=== PATIENT | male | born 1960 | race Caucasian/White ===

== ENCOUNTER → 2017-06-20 | Outpatient (CLI) | payer MEDICARE ==
[~2017-06-20] MED LIST: ALPR1TAB2 PO; ASCO10006 PO; ASPI-983 PO; BUPR100T6 PO; BUPR100T7 PO; CHOL500044 PO; CYAN10006 PO; EZET10TA5 PO; FENO134C PO; FENO135C PO; GLUC1CAP37 PO; METO-333 PO; METO-387 PO; MULT-324 PO; OLME40TA12 PO; OMEP20CA12 PO; OMG1KC PO; ROSU40TA PO; SUCR1TAB36 PO; TRAM50TA2 PO; VITA400C58 PO
== END ==
LOC: CARD 12:36
PROVIDERS: ATTEND Physician Assistant
DX: I25.10 Atherosclerotic heart disease of native coronary artery without angina pectoris (principal); R07.89 Other chest pain; I10 Essential (primary) hypertension; E78.2 Mixed hyperlipidemia
CPT/HCPCS: 93306

== ENCOUNTER → 2017-07-31 | Outpatient (CLI) | payer MEDICARE ==
[~2017-07-31] MED LIST changes: +CATHETER FLUSH 10 ML SYR IV PRN; +REGADENOSON 0.4 MG/5 ML SYR (LEXISCAN) IV ONE
[2017-07-31 13:14] VITALS: BP 154/102
[2017-07-31 13:23] VITALS: BP 147/79
--- NOTE | 2017-08-01 10:01 | STRESS TEST ---
DATE OF SERVICE: 07/31/2017 LEXISCAN MYOVIEW STRESS TEST REPORT REFERRING PHYSICIAN: Dr. Jian Arora. Baseline heart rate is 63, baseline blood pressure 154/100. Baseline EKG is sinus rhythm with no ischemic changes. In summary, the patient was injected with 10.27 mCi of technetium-99 Myoview and the resting images were obtained. Then, the patient received 0.4 mg of Lexiscan followed by 30.4 mCi of technetium-99 Myoview. Throughout the test, there were no EKG changes. The resting and stressed images were reviewed and compared to the short axis, horizontal long axis, and vertical long axis views. Review of the images showed diaphragmatic attenuation with good radiotracer uptake. There is mild decreased uptake at the basal to mid anterior wall with subtle reversibility. SSS is 4, SDS 3, TID value 1.08. On the gated images, the left ventricle appeared to be normal size with normal contractility. Calculated ejection fraction is 62%. CONCLUSION: 1. The patient developed chest pain with Lexiscan injection. 2. The patient developed chest pain later during recovery. 3. No EKG changes. 4. No significant ischemia or infarction on SPECT images. There is mild decreased uptake at the basal to mid anterior wall and basal to mid inferior wall with subtle reversibility. No significant ischemia was noted. 5. Normal left ventricular size with normal contractility, calculated ejection fraction is 67%. Job ID: [id number] DocumentID: [id number] Dictated Date: 07/31/2017 15:33:52 Resident Care Aid Date: 07/31/2017 20:01:12 Dictated By: SHANIKA HOLMAN MD
== END ==
LOC: CARD 11:52
PROVIDERS: ATTEND Physician Assistant
DX: I25.10 Atherosclerotic heart disease of native coronary artery without angina pectoris; R07.89 Other chest pain; E78.2 Mixed hyperlipidemia; I10 Essential (primary) hypertension
CPT/HCPCS: 78452; 93017

== ENCOUNTER → 2018-02-12 | Outpatient (CLI) | payer MEDICARE ==
[~2018-02-12] MED LIST changes: +ATOR20TA66 PO; -CATHETER FLUSH 10 ML SYR IV PRN; +CHOL10007 PO; +KRIL500C PO; +LOSA25TA21 PO; -REGADENOSON 0.4 MG/5 ML SYR (LEXISCAN) IV ONE
== END ==
LOC: PREOP 05:37
PROVIDERS: ATTEND Internal Medicine
DX: Z01.818 Encounter for other preprocedural examination (principal); Z12.11 Encounter for screening for malignant neoplasm of colon; K21.9 Gastro-esophageal reflux disease without esophagitis

== ENCOUNTER 2018-02-14 07:57 | Day surgery (SDC) | payer MEDICARE ==
--- NOTE | 2018-02-11 15:07 | HISTORY AND PHYSICAL ---
DATE OF SERVICE: PANENDOSCOPY HISTORY AND PHYSICAL DATE OF ADMISSION: 02/14/2018. REFERRING PHYSICIAN: . HISTORY OF PRESENT ILLNESS: The patient is a 57-year-old white male referred for screening colonoscopy and diagnostic EGD. He has a history of reflux and despite PPI and Carafate, the latter of which he has recently stopped, continues to have intermittent dysphagia to solids. He denies weight loss, melena or bright red blood per rectum. It is a little over 6 years since his last colonoscopy at which time, he had polyps removed. He is deemed to be of higher than average risk due to his personal past history of polyps and he also has several uncles who have been diagnosed with colon cancer in their 60s. He has been generally feeling well otherwise. PAST MEDICAL HISTORY: Significant for coronary artery disease. He has had multiple stents placed in the past; it has been over 5 years since his last stent. A review of our medical record indicates cardiac catheterization performed in 02/2016. His systolic function was preserved with an ejection fraction of 60%. Multiple stents were noted. He had a 40% to 50% step off after his most distal LAD stent and a 40% to 50% in-stent stenosis of the circumflex stent, but no evidence for flow limiting disease was noted. He has had no problems with angina or increase in dyspnea on exertion and denies orthopnea, PND or pedal edema. Past medical history is significant for hyperlipidemia and hypertension. MEDICATIONS ON ADMISSION: Include omeprazole 20 mg daily, 81 mg aspirin daily, Wellbutrin-SR 100 mg tab daily, metoprolol tartrate 25 mg daily, Fenofibrate 134 mg daily, he has generalized anxiety and takes Xanax 1 mg t.i.d. some multiple vitamins, losartan 50 mg daily, atorvastatin 80 mg daily, Claritin 10 mg daily and tramadol 50 mg q.6h p.r.n. PAST SURGICAL HISTORY: Noncontributory. No history of a foreign body or joint replacement surgery. FAMILY HISTORY: Father at age of 72 of glioblastoma. Mother is still living . One brother was diagnosed with prostate cancer at the age of 60 and two cousins with colon cancer and one also with history of lung cancer. SOCIAL HISTORY: He is retired. Distant past smoking history with no significant alcohol consumption history. PHYSICAL EXAMINATION: GENERAL: Reveals a well-appearing white male in no acute distress. VITAL SIGNS: Blood pressure 114/80 with a heart rate of 66 and regular. HEENT: Unremarkable and normocephalic. No evidence for trauma. Sclerae nonicteric. NECK: Revealed no JVD, adenopathy or bruits. Oral cavity is clear with a Mallampati class 2 oropharyngeal configuration. No erythema is noted. CHEST: Clear to auscultation. CARDIOVASCULAR: Reveals a regular rate and rhythm without murmur, S3 or S4. ABDOMEN: Soft, supple without mass, organomegaly or tenderness. Bowel sounds are positive. No bruits are noted. EXTREMITIES: Reveal no cyanosis, clubbing or edema. ASSESSMENT: The patient is set up for a screening colonoscopy and diagnostic EGD on 02/14/2018. He is to hold aspirin and continue his other medications. Prep instructions with Colyte were given and questions were answered. With evaluation of the patient in addition to review of his electronic medical record, 45 minutes of my direct care time was spent with another 15 minutes of staff time. I thank you for the referral of this pleasant gentleman. Job ID: [id number] DocumentID: [id number] Dictated Date: 02/11/2018 14:38:03 Senior Functional Analyst Date: 02/11/2018 15:06:54 Dictated By: CARIDAD HOLLIS MD [facility]
[~2018-02-14] VITALS: Ht 167.6 cm; Wt 90.7 kg
[~2018-02-14 07:57] MED LIST changes: -ATOR20TA66 PO; -CHOL10007 PO; -KRIL500C PO; -LOSA25TA21 PO
--- OUTSIDE RECORDS SUMMARY | 2018-02-14 08:01 | XMS REPORT | Continuity of Care Document ---
Author Author [facility] Organization [facility] Address Unknown Phone Unavailable Allergies Active Description Code Type Severity Reaction Onset Reported/Identified Relationship to Patient Clinical Status Yes Penicillins [id number] Drug Allergy Unknown N/A 02/29/2016 Medications There is no data. Problems Date Dx Coded Attending Type Code Diagnosis Diagnosed By 11/10/2015 SHANIKA HOLMAN MD Ot E78.2 11/10/2015 SHANIKA HOLMAN MD Ot I10 11/10/2015 SHANIKA HOLMAN MD Ot I25.10 11/10/2015 SHANIKA HOLMAN MD Ot R00.2 11/10/2015 SHANIKA HOLMAN MD Ot R07.89 11/10/2015 SHANIKA HOLMAN MD Ot Z87.891 12/14/2015 SHANIKA HOLMAN MD Ot E78.2 12/14/2015 SHANIKA HOLMAN MD Ot I10 12/14/2015 SHANIKA HOLMAN MD Ot I25.10 12/14/2015 SHANIKA HOLMAN MD Ot R00.2 12/14/2015 SHANIKA HOLMAN MD Ot R07.89 12/14/2015 SHANIKA HOLMAN MD Ot Z87.891 12/15/2015 SHANIKA HOLMAN MD Ot E78.2 12/15/2015 SHANIKA HOLMAN MD Ot I10 12/15/2015 SHANIKA HOLMAN MD Ot I25.10 12/15/2015 SHANIKA HOLMAN MD Ot R00.2 12/15/2015 SHANIKA HOLMAN MD Ot R07.89 12/15/2015 SHANIKA HOLMAN MD Ot Z87.891 12/16/2015 SHANIKA HOLMAN MD Ot I10 12/16/2015 SHANIKA HOLMAN MD Ot I25.10 12/16/2015 SHANIKA HOLMAN MD Ot R07.9 01/06/2016 SHANIKA HOLMAN MD Ot I10 01/06/2016 SHANIKA HOLMAN MD Ot I25.10 01/06/2016 SHANIKA HOLMAN MD Ot R07.9 01/25/2016 SHANIKA HOLMAN MD Ot I10 01/25/2016 SHANIKA HOLMAN MD Ot I25.10 01/25/2016 SHANIKA HOLMAN MD Ot R07.9 02/16/2016 TRISH STANTON MD Ot G47.33 OBSTRUCTIVE SLEEP APNEA (ADULT) (PEDIATR 02/23/2016 TRISH STANTON MD Ot G47.33 02/29/2016 SHANIKA HOLMAN MD Ot E78.5 HYPERLIPIDEMIA, UNSPECIFIED 02/29/2016 SHANIKA HOLMAN MD Ot F41.9 ANXIETY DISORDER, UNSPECIFIED 02/29/2016 SHANIKA HOLMAN MD Ot I10 ESSENTIAL (PRIMARY) HYPERTENSION 02/29/2016 SHANIKA HOLMAN MD Ot I25.10 ATHSCL HEART DISEASE OF [place] CORONARY 02/29/2016 SHANIKA HOLMAN MD Ot I25.82 CHRONIC TOTAL OCCLUSION OF CORONARY AC 02/29/2016 SHANIKA HOLMAN MD Ot R00.2 PALPITATIONS 02/29/2016 SHANIKA HOLMAN MD Ot R07.9 CHEST PAIN, UNSPECIFIED 02/29/2016 SHANIKA HOLMAN MD Ot Z79.899 OTHER SENIOR LIVING (CURRENT) DRUG THERAPY 02/29/2016 SHANIKA HOLMAN MD Ot Z87.891 PERSONAL HISTORY OF NICOTINE DEPENDENCE 02/29/2016 SHANIKA HOLMAN MD Ot Z95.5 PRESENCE OF CORONARY ANGIOPLASTY IMPLANT 03/12/2016 SHANIKA HOLMAN MD Ot E78.5 HYPERLIPIDEMIA, UNSPECIFIED 03/12/2016 SHANIKA HOLMAN MD Ot F41.9 ANXIETY DISORDER, UNSPECIFIED 03/12/2016 SHANIKA HOLMAN MD Ot I10 ESSENTIAL (PRIMARY) HYPERTENSION 03/12/2016 SHANIKA HOLMAN MD Ot I25.10 ATHSCL HEART DISEASE OF [place] CORONARY 03/12/2016 SHANIKA HOLMAN MD Ot I25.82 CHRONIC TOTAL OCCLUSION OF CORONARY AC 03/12/2016 SHANIKA HOLMAN MD Ot R00.2 PALPITATIONS 03/12/2016 SHANIKA HOLMAN MD Ot R07.9 CHEST PAIN, UNSPECIFIED 03/12/2016 SHANIKA HOLMAN MD Ot Z79.899 OTHER MARRIAGE AND FAMILY COUNSELOR (CURRENT) DRUG THERAPY 03/12/2016 SHANIKA HOLMNA MD Ot Z87.891 PERSONAL HISTORY OF NICOTINE DEPENDENCE 03/12/2016 SHANIKA HOLMAN MD Ot Z95.5 PRESENCE OF CORONARY ANGIOPLASTY IMPLANT 06/17/2017 SHANIKA HOLMAN MD Ot E78.2 MIXED HYPERLIPIDEMIA 06/17/2017 SHANIKA HOLMAN MD Ot I10 ESSENTIAL (PRIMARY) HYPERTENSION 06/17/2017 SHANIKA HOLMAN MD Ot I25.10 ATHSCL HEART DISEASE OF [place] CORONARY 06/17/2017 SHANIKA HOLMAN MD Ot R00.2 PALPITATIONS 06/17/2017 SHANIKA HOLMAN MD Ot R07.89 OTHER CHEST PAIN 06/17/2017 SHANIKA HOLMAN MD Ot Z87.891 PERSONAL HISTORY OF NICOTINE DEPENDENCE 06/17/2017 SHANIKA HOLMAN MD Ot I10 ESSENTIAL (PRIMARY) HYPERTENSION 06/17/2017 SHANIKA HOLMAN MD Ot I25.10 ATHSCL HEART DISEASE OF [place] CORONARY 06/17/2017 SHANIKA HOLMAN MD Ot R07.9 CHEST PAIN, UNSPECIFIED 06/18/2017 SHANIKA HOLMAN MD Ot E78.2 MIXED HYPERLIPIDEMIA 06/18/2017 SHANIKA HOLMAN MD Ot I10 ESSENTIAL (PRIMARY) HYPERTENSION 06/18/2017 SHANIKA HOLMAN MD Ot I25.10 ATHSCL HEART DISEASE OF [place] CORONARY 06/18/2017 SHANIKA HOLMAN MD Ot R00.2 PALPITATIONS 06/18/2017 SHANIKA HOLMAN MD Ot R07.89 OTHER CHEST PAIN 06/18/2017 SHANIKA HOLMAN MD Ot Z87.891 PERSONAL HISTORY OF NICOTINE DEPENDENCE 06/18/2017 SHANIKA HOLMAN MD Ot I10 ESSENTIAL (PRIMARY) HYPERTENSION 06/18/2017 SHANIKA HOLMAN MD Ot I25.10 ATHSCL HEART DISEASE OF [place] CORONARY 06/18/2017 SHANIKA HOLMAN MD Ot R07.9 CHEST PAIN, UNSPECIFIED 06/20/2017 SHANIKA HOLMAN MD Ot E78.2 MIXED HYPERLIPIDEMIA 06/20/2017 RIVER MD, BASHAR J Ot I10 ESSENTIAL (PRIMARY) HYPERTENSION 06/20/2017 SHANIKA HOLMAN MD Ot I25.10 ATHSCL HEART DISEASE OF [place] CORONARY 06/20/2017 SHANIKA HOLMAN MD Ot R00.2 PALPITATIONS 06/20/2017 SHANIKA HOLMAN MD Ot R07.89 OTHER CHEST PAIN 06/20/2017 SHANIKA HOLMAN MD Ot Z87.891 PERSONAL HISTORY OF NICOTINE DEPENDENCE 06/20/2017 SHANIKA HOLMAN MD Ot I10 ESSENTIAL (PRIMARY) HYPERTENSION 06/20/2017 SHANIKA HOLMAN MD Ot I25.10 ATHSCL HEART DISEASE OF [place] CORONARY 06/20/2017 SHANIKA HOLMAN MD Ot R07.9 CHEST PAIN, UNSPECIFIED 07/10/2017 GELACIO RINCON Ot E78.2 MIXED HYPERLIPIDEMIA 07/10/2017 GELACIO RINCON Ot I10 ESSENTIAL (PRIMARY) HYPERTENSION 07/10/2017 GELACIO RINCON Ot I25.10 ATHSCL HEART DISEASE OF [place] CORONARY 07/10/2017 GELACIO RINCON K Ot R07.89 OTHER CHEST PAIN 07/24/2017 SHANIKA HOLMAN MD Ot E78.2 MIXED HYPERLIPIDEMIA 07/24/2017 SHANIKA HOLMAN MD Ot I10 ESSENTIAL (PRIMARY) HYPERTENSION 07/24/2017 SHANIKA HOLMAN MD Ot I25.10 ATHSCL HEART DISEASE OF [place] CORONARY 07/24/2017 SHANIKA HOLMAN MD Ot R00.2 PALPITATIONS 07/24/2017 SHANIKA HOLMAN MD Ot R07.89 OTHER CHEST PAIN 07/24/2017 SHANIKA HOLMAN MD Ot Z87.891 PERSONAL HISTORY OF NICOTINE DEPENDENCE 07/24/2017 SHANIKA HOLMAN MD Ot I10 ESSENTIAL (PRIMARY) HYPERTENSION 07/24/2017 SHANIKA HOLMAN MD Ot I25.10 ATHSCL HEART DISEASE OF [place] CORONARY 07/24/2017 SHANIKA HOLMAN MD Ot R07.9 CHEST PAIN, UNSPECIFIED 07/24/2017 GELACIO RINCON Ot E78.2 MIXED HYPERLIPIDEMIA 07/24/2017 GELACIO RINCON K Ot I10 ESSENTIAL (PRIMARY) HYPERTENSION 07/24/2017 THAYER-JUDY PA, GELACIO K Ot I25.10 ATHSCL HEART DISEASE OF [place] CORONARY 07/24/2017 KELSEY PA, GELACIO K Ot R07.89 OTHER CHEST PAIN 07/30/2017 KELSEY PA, GELACIO K Ot E78.2 MIXED HYPERLIPIDEMIA 07/30/2017 KELSEY PA, GELACIO K Ot I10 ESSENTIAL (PRIMARY) HYPERTENSION 07/30/2017 KELSEY CHAVARRIA, GELACIO K Ot I25.10 ATHSCL HEART DISEASE OF [place] CORONARY 07/30/2017 KELSEY PA, GELACIO K Ot R07.89 OTHER CHEST PAIN 08/07/2017 KELSEY PA, GELACIO K Ot E78.2 MIXED HYPERLIPIDEMIA 08/07/2017 KELSEY PA, GELACIO K Ot I10 ESSENTIAL (PRIMARY) HYPERTENSION 08/07/2017 KELSEY CHAVARRIA, GELACIO K Ot I25.10 ATHSCL HEART DISEASE OF [place] CORONARY 08/07/2017 KELSEY CHAVARRIA, GELACIO K Ot R07.89 OTHER CHEST PAIN 08/07/2017 KELSEY PA, GELACIO K Ot E78.2 MIXED HYPERLIPIDEMIA 08/07/2017 KELSEY PA, GELACIO K Ot I10 ESSENTIAL (PRIMARY) HYPERTENSION 08/07/2017 KELSEY CHAVARRIA, GELACIO K Ot I25.10 ATHSCL HEART DISEASE OF [place] CORONARY 08/07/2017 KELSEY CHAVARRIA, GELACIO K Ot R07.89 OTHER CHEST PAIN 08/22/2017 KELSEY PA, GELACIO K Ot E78.2 MIXED HYPERLIPIDEMIA 08/22/2017 KELSEY PA, GELACIO K Ot I10 ESSENTIAL (PRIMARY) HYPERTENSION 08/22/2017 KELSEY PA, GELACIO K Ot I25.10 ATHSCL HEART DISEASE OF [place] CORONARY 08/22/2017 KELSEY CHAVARRIA, GELCAIO K Ot R07.89 OTHER CHEST PAIN 09/12/2017 KELSEY PA, GELACIO K Ot E78.2 MIXED HYPERLIPIDEMIA 09/12/2017 KELSEY PA, GELACIO K Ot I10 ESSENTIAL (PRIMARY) HYPERTENSION 09/12/2017 KELSEY CHAVARRIA, GELACIO K Ot I25.10 ATHSCL HEART DISEASE OF [place] CORONARY 09/12/2017 KELSEY CHAVARRIA, GELACIO K Ot R07.89 OTHER CHEST PAIN 09/18/2017 GELACIO RINCON Ot E78.2 MIXED HYPERLIPIDEMIA 09/18/2017 KELSEY CHAVARRIA, GELACIO K Ot I10 ESSENTIAL (PRIMARY) HYPERTENSION 09/18/2017 GELACIO RINCON K Ot I25.10 ATHSCL HEART DISEASE OF [place] CORONARY 09/18/2017 GELACIO RINCON K Ot R07.89 OTHER CHEST PAIN 2018 RIVER FRANKLIN, SHANIKA J Ot E78.2 MIXED HYPERLIPIDEMIA 2018 RIVER FRANKLIN, SHANIKA J Ot I10 ESSENTIAL (PRIMARY) HYPERTENSION 2018 SHANIKA HOLMAN MD J Ot I25.10 ATHSCL HEART DISEASE OF [place] CORONARY 2018 SHANIKA HOLMAN MD J Ot R00.2 PALPITATIONS 2018 SHANIKA HOLMAN MD J Ot R07.89 OTHER CHEST PAIN 2018 RIVER FRANKLIN, BASHAR J Ot Z87.891 PERSONAL HISTORY OF NICOTINE DEPENDENCE 2018 SHANIKA HOLMAN MD J Ot I10 ESSENTIAL (PRIMARY) HYPERTENSION 2018 SHANIKA HOLMAN MD J Ot I25.10 ATHSCL HEART DISEASE OF [place] CORONARY 2018 RIVER FRANKLIN, SHANIKA J Ot R07.9 CHEST PAIN, UNSPECIFIED 2018 GELACIO RINCON Ot E78.2 MIXED HYPERLIPIDEMIA 2018 GELACIO RINCON K Ot I10 ESSENTIAL (PRIMARY) HYPERTENSION 2018 GELACIO RINCON K Ot I25.10 ATHSCL HEART DISEASE OF [place] CORONARY 2018 GELACIO RINCON K Ot R07.89 OTHER CHEST PAIN 2018 GELACIO RINCON Ot E78.2 MIXED HYPERLIPIDEMIA 2018 BRIANNA RINCONTH K Ot I10 ESSENTIAL (PRIMARY) HYPERTENSION 2018 GELACIO RINCON K Ot I25.10 ATHSCL HEART DISEASE OF [place] CORONARY 2018 GELACIO RINCON K Ot R07.89 OTHER CHEST PAIN Procedures There is no data. Results There is no data. Encounters ACCT No. Visit Date/Time Discharge Status Pt. Type Provider Facility Loc./Unit Complaint [id number] 07/31/2017 11:52:00 07/31/2017 23:59:59 CLS Outpatient GELACIO RINCON [facility] CARD CAD I25.10, HTN I10 [id number] 06/20/2017 12:36:00 06/20/2017 23:59:59 CLS Outpatient GELACIO RINCON [facility] CARD CAD I25.10, HTN I10 [id number] 02/29/2016 06:57:00 02/29/2016 14:45:00 DIS Outpatient SHANIKA HOLMAN MD [facility] CATH DYSPNEA,CAD,HTN,HLP [id number] 02/15/2016 19:50:00 02/16/2016 06:20:00 DIS Outpatient TRISH STANTON MD [facility] SLEEP OBSERVED APNEAS [id number] 12/14/2015 12:41:00 12/14/2015 23:59:59 CLS Outpatient SHANIKA HOLMAN MD [facility] CARD CAD,CHEST PAIN AT REST, HTN,HISTORY OF TOBACCO USE [id number] 10/12/2015 08:24:00 10/12/2015 23:59:59 CLS Outpatient SHANIKA HOLMAN MD [facility] LAB CAD,CHEST PAIN, HTN, HISTORY OF TOBACCO USE, [id number] 02/14/2018 09:30:00 PEN Preadmit CARIDAD HOLLIS MD [facility] ENDO SCREENING [id number] 2018 05:37:00 ACT Outpatient CARIDAD HOLLIS MD [facility] PREOP COLONOSCOPY
[2018-02-14 08:35] VITALS: BP 142/83
[2018-02-14] MEDS ORDERED: LIDOCAINE JELLY 2% (XYLOCAINE) 5 ML TUBE MM PRN (08:45)
[2018-02-14] MEDS ORDERED: HURRICAINE EXT TUBE (BENZOCAINE) XX PRN (08:45)
[2018-02-14] MEDS ORDERED: LACTATED RINGERS 1,000 ML IV STA (08:55)
[2018-02-14] MEDS ORDERED: KRIL500C PO (09:06)
[2018-02-14] MEDS ORDERED: LOSA25TA21 PO (09:06)
[2018-02-14] MEDS ORDERED: ATOR20TA66 PO (09:06)
[2018-02-14] MEDS ORDERED: CHOL10007 PO (09:06)
--- NOTE | 2018-02-14 09:43 | Pre-Op Note & Conscious Sedat ---
Pre-Operative Progress Note H&P Reviewed The H&P was reviewed, patient examined and no changes noted. Date H&P Reviewed: Feb 14, 2018 Time H&P Reviewed: 09:42 Conscious Sedation Pre-Proced ASA Class: 2 Airway Mallampati Classification: ([place] appropriate class) I. II. III, IV Lungs Heart ASA score ASA 1: a normal healthy patient ASA 2: a patient with a mild systemic disease (mid diabetes, controlled hypertension, obesity ASA 3: a patient with a severe systemic disease that limits activity (angina , COPD, prior Myocardial infarction) ASA 4: a patient with an incapacitating disease that is a constant threat to life (CHF, renal failure) ASA 5: a moribund patient not expected to survive 24 hrs. (ruptured aneurysm) ASA 6: a declared brain patient whose organs are being harvested. For emergent operations, add the letter E after the classification Grade 3 Sedation Plan: Analgesia, Amnesia, Plan communicated to team members, Discussed options with patient/fam, Discussed risks with patient/fam Note The patient is an appropriate candidate to undergo the planned procedure, sedation, and anesthesia. The patient immediately re-assessed prior to indication. CARIDAD HOLLIS MD Feb 14, 2018 09:43
[2018-02-14] MEDS ORDERED: LACTATED RINGERS 1,000 ML IV ONE (09:57)
[2018-02-14] MEDS ORDERED: PROPOFOL INJECTION 50 ML IV ONE ×2 (10:12→10:40)
[2018-02-14] MEDS ORDERED: MIDAZOLAM 2 MG/2 ML (VERSED) VIAL ONE (10:12)
[2018-02-14] MEDS ORDERED: fentaNYL INJECTION 100 MCG/2 ML AMP ONE (10:39)
[2018-02-14] MEDS ORDERED: LIDOCAINE JELLY 2% (XYLOCAINE) 5 ML TUBE ONE (10:42)
[2018-02-14] MEDS ORDERED: HURRICAINE EXT TUBE (BENZOCAINE) ONE (10:42)
[2018-02-14 12:20] VITALS: BP 143/93
--- NOTE | 2018-02-14 13:49 | Anesthesia-General Post-Op ---
MAC Patient Condition Mental Status/LOC: Same as Preop Cardiovascular: Satisfactory Nausea/Vomiting: Absent Respiratory: Satisfactory Pain: Controlled Complications: Absent Post Op Complications Complications Patient complained of feeling like something in Right eye after procedure. Dr. Simons believes that the patient has a corneal abrasion. Patients eye patched. Will follow-up tomorrow. Follow Up Care/Instructions Patient Instructions None needed. Anesthesiology Discharge Order Discharge Order Patient is doing well, no complaints other than noted, stable vital signs, no apparent adverse anesthesia problems. No complications reported per nursing. ALEJO HANKS CRNA Feb 14, 2018 13:49
--- NOTE | 2018-02-14 15:30 | OPERATIVE REPORT ---
DATE OF SERVICE: 02/14/2018 PANENDOSCOPY SUMMARY Colonoscopy was done for screening purposes. EGD was done for evaluation of reflux with dysphagia. The patient was placed in the left lateral decubitus position. Prior to undergoing colonoscopy, digital rectal evaluation was performed. Anal sphincter tone was normal and the perianal reflexes intact. Prostate is normal in size, anodular and nontender on digital inspection. The colonoscope was then inserted into the rectum and under direct visualization advanced to the cecum. The cecum was identified by identification of the ileocecal valve and cecal strap. Photographic documentation was obtained. Careful inspection was made as the colonoscope was withdrawn. FINDINGS: Several small grade I internal hemorrhoid complexes were noted. No evidence for external hemorrhoids were noted. The rectum, sigmoid colon, descending colon, splenic flexure and transverse colon were unremarkable. The diminutive polyp was removed from the distal transverse colon. The remainder of the transverse colon, hepatic flexure, ascending colon and cecum were unremarkable. ASSESSMENT: 1. One diminutive polyp was removed from the distal transverse colon via hot forceps with no subsequent bleeding. This was otherwise normal colonoscopy to the cecum. 2. Several small grade I internal hemorrhoid complexes were noted with no evidence for external hemorrhoids. Prostate is unremarkable with digital inspection. The patient was reassured by today's findings and was advised to abstain from aspirin for 1 week. We then proceeded with EGD evaluation. The endoscope was inserted in the oral cavity and under direct visualization, the esophagus was intubated. The scope was passed down the esophagus, stomach and second portion of the duodenum. Careful inspection was made as the endoscope was withdrawn. FINDINGS: The proximal, mid and distal esophagus were unremarkable. There is evidence for a moderate-sized hiatal hernia without evidence for erosive esophagitis or North's change. The cardia and fundus of the stomach were unremarkable. Mild antral erythema was present. A biopsy was obtained and submitted for Helicobacter. The pylorus and the pyloric channel were unremarkable. Present in the distal duodenal bulb was a shallow benign-appearing peptic ulcer and it was photographed. The second portion of the duodenum was unremarkable without evidence for further ulceration and normal villous architecture. A/P 1. One small benign-appearing peptic ulcer without visible vessel formation or evidence for bleeding was noted in the distal duodenal bulb. There was some narrowing of the outlet with no evidence for retained food or fluid. Mild antral erythema was present and biopsies are pending for Helicobacter evaluation for which eradication will be recommended if it is present. The patient has a moderate-sized hiatal hernia as well without evidence for erosive esophagitis. He was advised to hold aspirin for one week. He does have multiple coronary stents and we will have him resume a baby aspirin in one week and continuing b.i.d. proton pump inhibitor therapy with further recommendations pending Helicobacter evaluation. I thank you for the referral of this pleasant gentleman. Post-procedure, the patient reported some chest discomfort and EKG was obtained with no abnormalities being noted. He also had significant tearing and foreign body sensation in his right eye. On evaluation, no evidence for foreign body was noted. There was no evidence to suggest inturned eyelash with some scleral and conjunctival injection compatible with likely corneal abrasion. Discussed likely need for an eye patch over the weekend with expectations that foreign body sensation would resolve as the abrasion heels, but doubt improvement until Saturday. If it is persisting in the next week, advised that he see his national sales manager for fluorescein testing, etcetera. Job ID: [id number] DocumentID: [id number] Dictated Date: 02/14/2018 12:20:00 Sulfide Head Operator Date: 02/14/2018 15:30:03 Dictated By: CARIDAD HOLLIS MD MTDD
--- NOTE | 2018-02-17 07:46 | Progress Note-Standard ---
Standard Progress Note Progress Notes/Assess & Plan Date Seen by Provider: Feb 15, 2018 Time Seen by Provider: 11:00 Final Diagnosis Late Entry: Follow up from possible corneal abrasion from yesterday. Pt's stated that his eye had no problems this morning after he took his patch off. No further complaints. ALEJO HANKS CRNA Feb 17, 2018 07:46
== END 2018-02-14 12:20 | disposition home or self-care (01) ==
LOC: ENDO 07:57
PROVIDERS: ATTEND Internal Medicine
DX: Z12.11 Encounter for screening for malignant neoplasm of colon (principal); D12.3 Benign neoplasm of transverse colon; K64.0 First degree hemorrhoids; K21.9 Gastro-esophageal reflux disease without esophagitis; K44.9 Diaphragmatic hernia without obstruction or gangrene; K26.9 Duodenal ulcer, unspecified as acute or chronic, without hemorrhage or perforation; R07.89 Other chest pain; S05.01XA Injury of conjunctiva and corneal abrasion without foreign body, right eye, initial encounter; I25.10 Atherosclerotic heart disease of native coronary artery without angina pectoris; I10 Essential (primary) hypertension; E78.5 Hyperlipidemia, unspecified; X58.XXXA Exposure to other specified factors, initial encounter; Z80.0 Family history of malignant neoplasm of digestive organs; Z95.5 Presence of coronary angioplasty implant and graft; Z79.82 Long term (current) use of aspirin; Z79.899 Other long term (current) drug therapy
CPT/HCPCS: 93005

== ENCOUNTER → 2018-06-30 | Outpatient (CLI) | payer MEDICARE ==
[~2018-06-30] MED LIST changes: +ATOR20TA66 PO; +CATHETER FLUSH 10 ML SYR IV PRN; +CHOL10007 PO; +IOHEXOL 350 MG/ML 100 ML (OMNIPAQUE 350) VIAL IV ONE; +KRIL500C PO; +LOSA25TA21 PO; +NS 100 ML (IVPB) BAG IV ONE
--- NOTE | 2018-06-30 15:57 | Diagnostic Imaging Report ---
CT EXTREMITY LOWER BILAT W WO Technique: Contiguous axial CT imaging of the bilateral lower extremities was performed prior to and after intravenous contrast administration. Sagittal and coronal reformats are created and submitted for interpretation. Indication: Bilateral lower extremity masses. Comparison: None available. Findings: The patient placed metallic skin markers on the areas of palpable concern scattered throughout the bilateral lower extremities. Corresponding to the markers in the medial aspect of the distal thighs and proximal right lower leg, there are non-masslike reticulations within the subcutaneous fat. Some of these reticulations surround superficial veins within the subcutaneous tissues, and greatest around the left greater saphenous vein in the medial thigh. There is no concerning solid mass lesion present. No focal osseous lesion within the bilateral femurs, tibias or fibulas. No knee joint effusion on either side. Impression: 1. Within the areas of palpable concern, there are scattered areas of non-masslike subcutaneous induration. Some of these reticulations are associated with superficial veins of the lower leg raising the possibility of superficial thrombophlebitis. Consider ultrasound interrogation of these areas of palpable concern to assess for superficial thrombus. If ultrasound is negative, then punch dermal biopsies may be warranted for further assessment. Dictated by: Dictated on workstation # [id number]
== END ==
LOC: RAD 14:12
PROVIDERS: ATTEND Internal Medicine
DX: M79.89 Other specified soft tissue disorders (principal)

== ENCOUNTER → 2019-05-19 | Outpatient (CLI) | payer MEDICARE, BC ==
[~2019-05-19] MED LIST changes: -CATHETER FLUSH 10 ML SYR IV PRN; -IOHEXOL 350 MG/ML 100 ML (OMNIPAQUE 350) VIAL IV ONE; -LOSA25TA21 PO; +LOSA25TA41 PO; -MULT-324 PO; +MULT-834 PO; -NS 100 ML (IVPB) BAG IV ONE
--- NOTE | 2019-05-19 14:19 | Diagnostic Imaging Report ---
INDICATION: Back pain. TIME OF EXAM: 12:19 p.m. FINDINGS: Curvature and alignment of the lumbar spine is normal. Vertebral body heights are maintained. No acute compression fracture is seen. There is variable disc space narrowing and marginal spurring consistent with degenerative change. This is greatest at L5-S1 level. Atherosclerotic calcifications in the abdominal aorta are noted. IMPRESSION: Lumbar spondylosis. No acute bony abnormality is detected. Dictated by: Dictated on workstation # [id number]
--- NOTE | 2019-05-19 14:42 | Diagnostic Imaging Report ---
INDICATION: Sacral pain. Time of exam 12:20 p.m. FINDINGS: Three views of the sacrum were obtained. Sacral arcuate lines are intact. No fractures are identified. Coccyx is unremarkable. IMPRESSION: No acute bony abnormality is detected. Dictated by: Dictated on workstation # [id number]
== END ==
LOC: RAD 11:56
PROVIDERS: ATTEND Nurse Practitioner
DX: M47.816 Spondylosis without myelopathy or radiculopathy, lumbar region (principal); M53.3 Sacrococcygeal disorders, not elsewhere classified
CPT/HCPCS: 72100; 72220

== ENCOUNTER 2019-07-15 20:39 | Observation (INO) | payer BC, MEDICARE ==
[~2019-07-15] VITALS: Ht 170.2 cm; Wt 94.3 kg
[~2019-07-15 20:39] MED LIST changes: +CYAN-41 PO; -CYAN10006 PO; -OMEP20CA12 PO; +OMEP20CA13 PO
[2019-07-15 20:59] LABS: BASOPHILS % (AUTO) 0 % (0-10); EOSINOPHILS # (AUTO) 0.3 10^3/uL (0.0-0.3); EOSINOPHILS % (AUTO) 3 % (0-10); HEMATOCRIT 46 % (40-54); HEMOGLOBIN 15.8 G/DL (13.3-17.7); LYMPHOCYTES # (AUTO) 3.2 X 10^3 (1.0-4.0); LYMPHOCYTES % (AUTO) 32 % (12-44); MEAN CORPUSCULAR HEMOGLOBIN 30 PG (25-34); MEAN CORPUSCULAR HGB CONC 35 G/DL (32-36); MEAN CORPUSCULAR VOLUME 86 FL (80-99); MEAN PLATELET VOLUME 11.4 FL (7.4-10.4); MONOCYTES # (AUTO) 0.8 X 10^3 (0.0-1.0); MONOCYTES % (AUTO) 8 % (0-12); NEUTROPHILS # (AUTO) 5.8 X 10^3 (1.8-7.8); NEUTROPHILS % (AUTO) 58 % (42-75); PLATELET COUNT 190 10^3/uL (130-400); RED CELL DISTRIBUTION WIDTH 12.7 % (10.0-14.5); WHITE BLOOD COUNT 10.1 10^3/uL (4.3-11.0)
[2019-07-15] MEDS ORDERED: ASPIRIN 81 MG CHEW (CHILDREN'S ASA) PO ONE (21:00)
--- NOTE | 2019-07-15 21:01 | ED Chest Pain ---
General Chief Complaint: Chest Pain Stated Complaint: CHEST DISCOMFORT,SOB History of Present Illness Date Seen by Provider: Jul 15, 2019 Time Seen by Provider: 20:40 Initial Comments 59-year-old male presents with two-hour history of chest pressure and left jaw pain. He had multiple stents placed between 2009 and 2011. He has a cardiac catheterization approximately every 2-[address] Trejo. He is on aspirin daily but takes it in the evening and has not had this evening's dose. He reports becoming diaphoretic with his symptoms but no nausea or vomiting. He has not taken any nitroglycerin. He has a history of early onset dementia. Reviewed Last heart catheterization was 02/29/[address] Trejo, which showed a patent stent in the proximal and mid LAD was stepdown beyond it to 40-50% stenosis, the stent in the proper circumflex showed 40-50% restenosis. Ejection fraction was 60%. Stress test was Jul 2017. Timing/Duration: 1-3 hours Severity/Quality: moderate Location: substernal Radiation: jaw Activities at Onset: none Prior CP/Workup: angina, cardiac cath, heart attack ASA po MACHINE MAINTENANCE SERVICER: No NTG SL MACHINE MAINTENANCE SERVICER: No Associated Symptoms: denies symptoms Allergies and Home Medications Allergies Coded Allergies: Penicillins (Unverified Allergy, Unknown, 02/29/16) Home Medications Alprazolam 1 Mg Tablet, 1 MG PO TID PRN for ANXIETY, (Reported) Ascorbic Acid 1,000 Mg Tablet, 1,000 MG PO BID, (Reported) Atorvastatin Calcium 20 Mg Tablet, 20 MG PO BID, (Reported) Bupropion HCl 100 Mg Tablet.er, 100 MG PO BID, (Reported) Cholecalciferol (Vitamin D3) 1,000 Unit Capsule, 1,000 UNIT PO DAILY, (Reported) Fenofibric Acid (Choline) 135 Mg Capsule.dr, 135 MG PO HS, (Reported) Glucosa Shukla 2Kcl/Chondroitin Shukla 1 Each Capsule, 1 CAP PO BID, (Reported) Krill Oil 500 Mg Capsule, 500 MG PO DAILY, (Reported) Losartan Potassium 25 Mg Tablet, 12.5 MG PO DAILY, (Reported) Metoprolol Tartrate 25 Mg Tablet, 25 MG PO DAILY, (Reported) Multivitamin 1 Each Tablet, 1 TAB PO DAILY, (Reported) Omeprazole 20 Mg Capsule.dr, 20 MG PO BID, (Reported) Tramadol HCl 50 Mg Tablet, 100 MG PO Q4H PRN for PAIN, (Reported) TAKES 2 (50MG) TABLETS Vitamin E Mixed 400 Unit Capsule, 400 UNIT PO HS, (Reported) Patient Home Medication List Home Medication List Reviewed: Yes Review of Systems Review of Systems Constitutional: no symptoms reported, see HPI Cardiovascular: See HPI, Chest Pain Gastrointestinal: No Symptoms Reported, See HPI; Denies Nausea, Denies Vomiting All Other Systems Reviewed Negative Unless Noted: Yes Past Urizpns-Tqfzds-Nbkhfq Hx Past Med/Social Hx: Reviewed Nursing Past Med/Soc Hx Patient Social History Former Smoker, Quit: Feb 14, 2010 Recent Foreign Travel: No Contact w/Someone Who Travel: No Recent Hopitalizations: No Immunizations Up To Date Date of Influenza Vaccine: Aug 26, 2017 Seasonal Allergies Seasonal Allergies: Yes Past Medical History Tonsillectomy Sleep Apnea Currently Using CPAP: Yes Coronary Artery Disease, Heart Attack, High Cholesterol, Hypertension Headaches /Migraines Reproductive Disorders: No Sexually Transmitted Disease: No HIV/AIDS: No Kidney Stones Gastroesophageal Reflux, Ulcer Degenerate Disk Disease, Arthritis, Chronic Back Pain Loss of Vision: Bilateral Hearing Impairment: Bilateral Hearing Aide Anxiety Adverse Reaction/Blood Tranf: No (N/A) Physical Exam Vital Signs Vital Signs - First Documented 07/15/19 07/15/19 20:40 20:42 Temp 99.0 Pulse 88 Resp 20 B/P (MAP) 144/89 (107) Pulse Ox 96 O2 Delivery Room Air O2 Flow Rate 2.00 Capillary Refill : Height, Weight, BMI Height: 5'6.00" Weight: 200lbs. 0.0oz. 90.913389cn; 32.3 BMI Method: General Appearance: No Apparent Distress, WD/WN HEENT: PERRL/EOMI, TMs Normal, Normal ENT Inspection, Pharynx Normal Neck: Full Range of Motion, Normal Inspection, Non Tender, Supple Respiratory: Chest Non Tender, Lungs Clear, Normal Breath Sounds Cardiovascular: Regular Rate, Rhythm, No Edema, No Murmur, Normal Peripheral Pulses Gastrointestinal: Normal Bowel Sounds, Non Tender, Soft Neurologic/Psychiatric: Alert, Oriented x3, No Motor/Sensory Deficits, Normal Mood/Affect Skin: Normal Color, Warm/Dry; No Diaphoresis Lymphatic: No Adenopathy Progress/Results/Core Measures Results/Orders Lab Results Laboratory Tests Test 07/15/19 20:42 Range/Units White Blood Count 10.1 4.3-11.0 10^3/uL Red Blood Count 5.27 4.35-5.85 10^6/uL Hemoglobin 15.8 13.3-17.7 G/DL Hematocrit 46 40-54 % Mean Corpuscular Volume 86 80-99 FL Mean Corpuscular Hemoglobin 30 25-34 PG Mean Corpuscular Hemoglobin Concent 35 32-36 G/DL Red Cell Distribution Width 12.7 10.0-14.5 % Platelet Count 190 130-400 10^3/uL Mean Platelet Volume 11.4 H 7.4-10.4 FL Neutrophils (%) (Auto) 58 42-75 % Lymphocytes (%) (Auto) 32 12-44 % Monocytes (%) (Auto) 8 0-12 % Eosinophils (%) (Auto) 3 0-10 % Basophils (%) (Auto) 0 0-10 % Neutrophils # (Auto) 5.8 1.8-7.8 X 10^3 Lymphocytes # (Auto) 3.2 1.0-4.0 X 10^3 Monocytes # (Auto) 0.8 0.0-1.0 X 10^3 Eosinophils # (Auto) 0.3 0.0-0.3 10^3/uL Basophils # (Auto) 0.0 0.0-0.1 10^3/uL Prothrombin Time 14.1 12.2-14.7 SEC INR Comment 1.1 0.8-1.4 Activated Partial Thromboplast Time 31 24-35 SEC Sodium Level 141 135-145 MMOL/L Potassium Level 3.4 L 3.6-5.0 MMOL/L Chloride Level 105 98-107 MMOL/L Carbon Dioxide Level 24 21-32 MMOL/L Anion Gap 12 5-14 MMOL/L Blood Urea Nitrogen 21 H 7-18 MG/DL Creatinine 1.55 H 0.60-1.30 MG/DL Estimat Glomerular Filtration Rate 46 BUN/Creatinine Ratio 14 Glucose Level 106 H 70-105 MG/DL Calcium Level 9.8 8.5-10.1 MG/DL Corrected Calcium 8.5-10.1 MG/DL Magnesium Level 2.0 1.6-2.4 MG/DL Total Bilirubin 0.6 0.1-1.0 MG/DL Aspartate Amino Transf (AST/SGOT) 35 H 5-34 U/L Alanine Aminotransferase (ALT/SGPT) 43 0-55 U/L Alkaline Phosphatase 47 40-136 U/L Myoglobin 446.8 H 10.0-92.0 NG/ML Troponin I < 0.028 <0.028 NG/ML B-Type Natriuretic Peptide 32.8 <100.0 PG/ML Total Protein 7.2 6.4-8.2 GM/DL Albumin 4.7 H 3.2-4.5 GM/DL My Orders Orders - MADDIMAKAYLA Cbc With Automated Diff (07/15/19 20:52) Magnesium (07/15/19 20:52) Chest 1 View, Ap/Pa Only (07/15/19 20:52) Cardiac Profile 1 (07/15/19 20:52) Comprehensive Metabolic Panel (07/15/19 20:52) Myoglobin Serum (07/15/19 20:52) Protime With Inr (07/15/19 20:52) Partial Thromboplastin Time (07/15/19 20:52) O2 (07/15/19 20:52) Monitor-Rhythm Ecg Trace Only (07/15/19 20:52) Ed Iv/Invasive Line Start (07/15/19 20:52) BNP (07/15/19 20:52) Aspirin Chewable Tablet (Baby Aspirin Ch (07/15/19 21:00) Ticagrelor Tablet (Brilinta Tablet) (07/15/19 21:49) Medications Given in ED Current Medications Medications Dose Ordered Sig/Reva Route Start Time Stop Time Status Last Admin Dose Admin Aspirin 324 mg ONCE ONCE PO 07/15/19 21:00 07/15/19 21:01 DC 07/15/19 21:12 324 MG Vital Signs/I&O 07/15/19 07/15/19 20:40 20:42 Temp 99.0 Pulse 88 Resp 20 B/P (MAP) 144/89 (107) Pulse Ox 96 98 O2 Delivery Room Air Nasal Cannula O2 Flow Rate 2.00 Progress Progress Note : Time: 20:40 Progress Note Patient seen and evaluated, we'll obtain EKG and lab work. Aspirin to 324 mg orally. O2 nasal cannula 1 L, SaO2 on Room Air 93-94%. 2100 EKG and chest x-ray both essentially normal. Awaiting labs. 2144 troponin negative but elevated myoglobin. Patient denies any further chest pain. He does state he feels an occasional palpitation in his left chest. EKG continues to show sinus rhythm at rate of mid-60s-80. Discussed results with Dr. Limon, recommended admission. He will be available overnight but consult Dr. Trejo in the morning. Commended Brilinta and Lovenox, will give these medications. [address] Franz, will admit patient as hospitalist. Notified Healthcare Sales Representative, no ICU beds available. Telemetry units all in use, will notify when medical bed with telemetry is available. 0 Patient admitted to [address] [place] [address]. No further chest pain, stable throughout E D stay. Initial ECG Impression Date: Jul 15, 2019 Initial ECG Impression Time: 20:47 Initial ECG Rate: 88 Initial ECG Rhythm: Normal Sinus Initial ECG Intervals: Normal Initial ECG Intervals VT 140, QRSD 94, QT 352, QTC 426. [place] P 42, QRS 32, T7. Initial ECG Impression: Normal Initial ECG Comparisson: Unchanged Comment Reviewed with Dr. Sanchez, agreed with interpretation. Diagnostic Imaging Diagonstic Imaging: Xray Plain Films/CT/US/NM/MRI: chest Comments Date of Exam: 07/15/19 CHEST 1 VIEW, AP/PA ONLY INDICATION: Chest pain Upright chest shows normal heart size and vascularity. The lungs are clear. There is no effusion or pneumothorax. There is no bony abnormality. IMPRESSION: Normal chest with no change from 02/29/2016. Dictated by: Dictated on workstation # [id number] Dict: 07/15/192115 Trans: 07/15/192125 Interpreted by: WINTER CINTRON MD Electronically signed by: WINTER CINTRON MD 07/15/192125 Reviewed: Reviewed by Me Departure Impression Primary Impression: Chest pain Qualified Codes: R07.89 - Other chest pain Disposition: ADMITTED INPATIENT Condition: Stable Admissions Decision to Admit Reason: Admit from ER (General) Decision to Admit/Date: Jul 15, 2019 Time/Decision to Admit Time: 21:45 Departure-Patient Inst. Referrals: JOE BRIZUELA MD (PCP) Primary Care Physician Copy Copies To 1: SHANIKA TREJO MD; JOE BRIZUELA MD, AMY ARNP Jul 15, 2019 21:01
[2019-07-15 21:09] LABS: INR 1.1 (0.8-1.4); PROTHROMBIN TIME PATIENT 14.1 SEC (12.2-14.7)
--- NOTE | 2019-07-15 21:21 | Diagnostic Imaging Report ---
INDICATION: Chest pain Upright chest shows normal heart size and vascularity. The lungs are clear. There is no effusion or pneumothorax. There is no bony abnormality. IMPRESSION: Normal chest with no change from 02/29/2016. Dictated by: Dictated on workstation # [id number]
[2019-07-15 21:24] LABS: ALANINE AMINOTRANSFERASE 43 U/L (0-55); ALBUMIN 4.7 GM/DL (3.2-4.5); ALKALINE PHOSPHATASE 47 U/L (40-136); BILIRUBIN,TOTAL 0.6 MG/DL (0.1-1.0); BUN/CREATININE RATIO 14; CALCIUM 9.8 MG/DL (8.5-10.1); CARBON DIOXIDE 24 MMOL/L (21-32); CHLORIDE 105 MMOL/L (98-107); CREATININE SERUM 1.55 MG/DL (0.60-1.30); GFR ESTIMATED 46; GLUCOSE 106 MG/DL (70-105); POTASSIUM 3.4 MMOL/L (3.6-5.0); SODIUM 141 MMOL/L (135-145); TOTAL PROTEIN 7.2 GM/DL (6.4-8.2)
[2019-07-15] MEDS ORDERED: TICAGRELOR 90 MG TABLET (BRILINTA) PO STA (21:49)
[2019-07-15] MEDS ORDERED: ENOXAPARIN 100 MG/1 ML (LOVENOX) SYR SC ONE (22:15)
--- NOTE | 2019-07-15 23:00 | NUR ---
ELSA SWENSON admitted to room 411-1, with an admitting diagnosis of CHEST PAIN , on 07/15/19 from ED via , accompanied by ED STAFF. ELSA SWENSON introduced to surroundings, call light, bed controls, phone, TV, temperature control, lights, meal times, smoking policy, visitor policy, side rail policy, bathrooms and showers. Patient Rights given to patient in the handbook. ELSA SWENSON verbalizes understanding that [facility] is not responsible for the loss or damage to any personal effects or valuables that are kept in the patients posession during their hospitalization. Patient Care Plans was discussed with the pt. ELSA SWENSON verbalizes understanding of Interdisciplinary Patient Education. Patient and/or family were informed about the Rapid Response Team and its purpose.
[2019-07-15 23:37] VITALS: BP 128/71
[2019-07-15] MEDS ORDERED: NS IV 1000 ML 1,000 ML ONE (23:52)
[2019-07-16] MEDS ORDERED: RT-ALBUTEROL SULF 2.5 MG/3 ML PRE-MIX VIAL INH PRN
[2019-07-16 00:56] VITALS: BP 128/71
[2019-07-16] MEDS ORDERED: ALPRAZolam 1 MG (XANAX) TAB PO PRN (02:00)
[2019-07-16] MEDS ORDERED: ACETAMINOPHEN 325 MG TABLET PO PRN (02:00)
[2019-07-16] MEDS ORDERED: ONDANSETRON 4 MG/2 ML (SDV) Z0FRAN IV PRN (02:00)
[2019-07-16] MEDS: NS IV 1000 ML 1,000 ML IV SCH ×2 (02:11→10:08)
[2019-07-16 04:41] VITALS: BP 149/91
[2019-07-16 06:40] LABS: BASOPHILS % (AUTO) 0 % (0-10); EOSINOPHILS # (AUTO) 0.2 10^3/uL (0.0-0.3); EOSINOPHILS % (AUTO) 4 % (0-10); HEMATOCRIT 44 % (40-54); HEMOGLOBIN 14.8 G/DL (13.3-17.7); LYMPHOCYTES # (AUTO) 2.9 X 10^3 (1.0-4.0); LYMPHOCYTES % (AUTO) 43 % (12-44); MEAN CORPUSCULAR HEMOGLOBIN 30 PG (25-34); MEAN CORPUSCULAR HGB CONC 34 G/DL (32-36); MEAN CORPUSCULAR VOLUME 87 FL (80-99); MEAN PLATELET VOLUME 11.2 FL (7.4-10.4); MONOCYTES # (AUTO) 0.7 X 10^3 (0.0-1.0); MONOCYTES % (AUTO) 11 % (0-12); NEUTROPHILS # (AUTO) 2.8 X 10^3 (1.8-7.8); NEUTROPHILS % (AUTO) 43 % (42-75); PLATELET COUNT 159 10^3/uL (130-400); RED CELL DISTRIBUTION WIDTH 12.9 % (10.0-14.5); WHITE BLOOD COUNT 6.6 10^3/uL (4.3-11.0)
[2019-07-16 07:06] LABS: ALANINE AMINOTRANSFERASE 38 U/L (0-55); ALBUMIN 3.9 GM/DL (3.2-4.5); ALKALINE PHOSPHATASE 39 U/L (40-136); BILIRUBIN,TOTAL 0.5 MG/DL (0.1-1.0); BUN/CREATININE RATIO 19; CALCIUM 8.9 MG/DL (8.5-10.1); CARBON DIOXIDE 24 MMOL/L (21-32); CHLORIDE 109 MMOL/L (98-107); CREATININE SERUM 1.07 MG/DL (0.60-1.30); GFR ESTIMATED > 60; GLUCOSE 88 MG/DL (70-105); POTASSIUM 3.6 MMOL/L (3.6-5.0); SODIUM 141 MMOL/L (135-145); TOTAL PROTEIN 5.9 GM/DL (6.4-8.2)
[2019-07-16 08:00] VITALS: BP 135/80
[2019-07-16] MEDS ORDERED: ALPR1TAB7 PO (09:20)
[2019-07-16] MEDS ORDERED: FENO134C PO (09:20)
[2019-07-16] MEDS ORDERED: LOSA100T3 PO (09:20)
[2019-07-16] MEDS ORDERED: ATOR40TA70 PO (09:20)
[2019-07-16] MEDS ORDERED: BUPR100T8 PO (09:20)
[2019-07-16] MEDS ORDERED: MULT1TAB69 PO (09:20)
[2019-07-16] MEDS ORDERED: ASPI-983 PO (09:26)
[2019-07-16] MEDS ORDERED: KRIL1CAP18 PO (09:26)
[2019-07-16] MEDS ORDERED: CHOL20002 PO (09:26)
--- NOTE | 2019-07-16 09:30 | NUR ---
SPOKE WITH THE PATIENT ABOUT HIS MEDICATIONS. WE WENT OVER THE EXT MED HX AND HE VERIFIED HOW HE TAKES EACH MEDICATION, HE ALSO HAD A DETAILED LIST WITH HIM, SEE CHART FOR DETAILS.
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
--- NOTE | 2019-07-16 11:48 | NUR ---
Initial visit with the pt and his , Jinny. The pt and his are [employer] and demonstrated appreciation for noteman support. Pt requested prayer for upcoming heart cath.
[2019-07-16 14:30] VITALS: BP 135/80
[2019-07-16] MEDS ORDERED: meTOprolol TARTRATE 25 MG (LOPRESSOR) TABLET PO SCH (21:00)
== END 2019-07-16 12:56 | disposition home or self-care (01) ==
LOC: EDUNIT# 20:39 → ER 20:40 → 4TH 22:00 → UNDOADMOB 22:00 → 4TH 22:50 → UNDODISOB 07-16 14:40
PROVIDERS: ADMIT Internal Medicine; ATTEND Internal Medicine
DX: R07.9 Chest pain, unspecified (principal); R00.2 Palpitations; I25.10 Atherosclerotic heart disease of native coronary artery without angina pectoris; I10 Essential (primary) hypertension; E78.5 Hyperlipidemia, unspecified; E86.0 Dehydration; E78.00 Pure hypercholesterolemia, unspecified; K21.9 Gastro-esophageal reflux disease without esophagitis; J30.9 Allergic rhinitis, unspecified; G43.909 Migraine, unspecified, not intractable, without status migrainosus; G47.30 Sleep apnea, unspecified; G89.29 Other chronic pain; M54.9 Dorsalgia, unspecified; M19.90 Unspecified osteoarthritis, unspecified site; N20.0 Calculus of kidney; F41.9 Anxiety disorder, unspecified; Z88.0 Allergy status to penicillin; Z79.899 Other long term (current) drug therapy; Z87.891 Personal history of nicotine dependence; Z90.89 Acquired absence of other organs; Z79.82 Long term (current) use of aspirin; Z80.42 Family history of malignant neoplasm of prostate
CPT/HCPCS: 36415; 71045; 80053; 83735; 83874; 83880; 84484; 85025; 85610; 85730; 93005; 93041; 94760; 96372; G0378

== ENCOUNTER → 2019-07-20 | Outpatient (CLI) | payer BC, MEDICARE ==
[~2019-07-20] VITALS: Ht 167.6 cm; Wt 90.7 kg
[~2019-07-20] MED LIST changes: +ALPR1TAB7 PO; +ATOR40TA70 PO; +BUPR100T8 PO; +CATHETER FLUSH 10 ML SYR IV PRN; +CHOL20002 PO; +KRIL1CAP18 PO; +LOSA100T3 PO; +MULT1TAB69 PO
[2019-07-20 10:10] VITALS: BP 216/90
--- NOTE | 2019-07-27 10:33 | STRESS TEST ---
DATE OF SERVICE: 07/20/2019 EXERCISE MYOVIEW STRESS TEST REPORT REFERRING PHYSICIAN: Jian Arora MD Baseline heart rate is 64. Baseline blood pressure is 148/89. Baseline EKG is sinus rhythm with no ischemic changes. In summary, the patient was injected with 10.72 mCi of technetium-99 Myoview and the resting images were obtained. Then, the patient started exercising with a baseline heart rate, blood pressure and EKG mentioned above. The patient was able to exercise for 5 minutes on standard Fan protocol. With peak exercise level, EKG was showing minimal nondiagnostic changes. During recovery, heart rate and blood pressure returned to baseline. Peak blood pressure was 216/90. The resting and stress images were reviewed and compared in the short axis, horizontal long axis, and vertical long axis views. Review of the images showed mild decreased uptake at the mid to apical anterior septum with subtle reversibility, no significant ischemia was noted. SSS is 5, SDS 5, TID value 0.95. On the gated images, the left ventricle appeared to be normal size with normal contractility. Calculated ejection fraction 58%. CONCLUSION: 1. Fair exercise tolerance, a total of 5 minutes on standard Fan protocol, total of 7 METS achieving 91% of maximum expected heart rate. 2. Severe hypertensive response to exercise with peak blood pressure 216/90, returned to baseline during recovery. 3. Minimal nondiagnostic changes on EKG returned to baseline during recovery. 4. No significant ischemia or infarction was noted on SPECT images. There was mild decreased uptake at the mid to apical anterior septum with subtle reversibility. 5. Normal left ventricular size with normal contractility. Calculated ejection fraction 58%. Job ID: [id number] DocumentID: [id number] Dictated Date: 07/27/2019 07:58:26 Spring Fitter Date: 07/27/2019 10:33:18 Dictated By: SHANIKA HOLMAN MD
== END ==
LOC: CARD 08:14
PROVIDERS: ATTEND Internal Medicine Cardiovascular Disease
DX: I25.10 Atherosclerotic heart disease of native coronary artery without angina pectoris (principal); I10 Essential (primary) hypertension; E78.5 Hyperlipidemia, unspecified; R00.2 Palpitations
CPT/HCPCS: 78452; 93017

== ENCOUNTER 2019-07-31 09:29 | Outpatient (RCR) | payer BC, MEDICARE ==
[~2019-07-31 09:29] MED LIST changes: -CATHETER FLUSH 10 ML SYR IV PRN
== END 2019-09-04 12:12 | disposition home or self-care (01) ==
PROVIDERS: ATTEND Nurse Practitioner
DX: M51.36 Other intervertebral disc degeneration, lumbar region (principal)

== ENCOUNTER 2019-12-25 05:34 | Outpatient (CLI) | payer BC, MEDICARE ==
[~2019-12-25] VITALS: Ht 167 cm; Wt 90.0 kg
[~2019-12-25 05:34] MED LIST changes: +EZET10TA17 PO; -EZET10TA5 PO; -METO-387 PO; +MTP25TSR PO; +OMEP-280 PO; -OMEP20CA13 PO; -TRAM50TA2 PO; +TRM50T PO; +VITA-272 PO; -VITA400C58 PO
[2019-12-25] MEDS ORDERED: CHOL200059 PO (10:49)
[2020-01-01] MEDS ORDERED: CLIN150C2 PO (15:23)
[2020-01-01] MEDS ORDERED: ACHD5005 PO (15:23)
[2020-01-01] MEDS ORDERED: CLIN150C17 PO (15:23)
== END 2019-12-25 10:55 | disposition home or self-care (01) ==
LOC: PREOP 05:34
PROVIDERS: ATTEND Podiatrist Foot & Ankle Surgery
DX: Z01.818 Encounter for other preprocedural examination (principal)

== ENCOUNTER → 2020-09-27 | Outpatient (CLI) | payer BC, MEDICARE ==
[~2020-09-27] MED LIST changes: +ACHD5005 PO; +ASCO100024 PO; -ASCO10006 PO; +ASPI-1238 PO; -ASPI-983 PO; +CHOL200059 PO; +CLIN150C17 PO; +CLIN150C2 PO; +MULT-567 PO; -MULT1TAB69 PO; -OMEP-280 PO; +OMEP20CA18 PO
== END ==
LOC: LABNPT 05:47
PROVIDERS: ATTEND Internal Medicine
DX: R50.9 Fever, unspecified (principal); R05 Cough; R09.81 Nasal congestion; R51.9 Headache, unspecified; Z20.828 Contact with and (suspected) exposure to other viral communicable diseases
CPT/HCPCS: 87804; U0002; 87635

== ENCOUNTER → 2020-10-03 | Outpatient (CLI) | payer MEDICARE, MEDICAID | LOC: LABNPT 05:42 | PROVIDERS: ATTEND Internal Medicine | DX: R50.9 Fever, unspecified (principal); R51.9 Headache, unspecified; R53.83 Other fatigue; R11.0 Nausea; Z20.828 Contact with and (suspected) exposure to other viral communicable diseases | CPT/HCPCS: 87635 ==

== ENCOUNTER → 2021-01-09 | Outpatient (CLI) | payer MEDICARE, MEDICAID ==
[~2021-01-09] MED LIST changes: -CLIN150C17 PO; +CLIN150C18 PO
--- NOTE | 2021-01-09 17:11 | Diagnostic Imaging Report ---
INDICATION: Lump in right inner thigh. Ultrasound images of the area in question were performed. There is no identifiable discrete focal lesion sonographically. IMPRESSION: Ultrasound images demonstrate no significant discernible lesion, without change from 07/03/2018. If an area is palpated clinically, would consider MRI for further evaluation. Dictated by: Dictated on workstation # [id number]
== END ==
LOC: RAD 13:30
PROVIDERS: ATTEND Nurse Practitioner
DX: R22.42 Localized swelling, mass and lump, left lower limb (principal); R19.00 Intra-abdominal and pelvic swelling, mass and lump, unspecified site
CPT/HCPCS: 76881

== ENCOUNTER → 2021-02-21 | Outpatient (CLI) | payer MEDICARE, MEDICAID ==
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
--- NOTE | 2021-02-21 16:29 | Diagnostic Imaging Report ---
INDICATION: Upper back pain. TIME OF EXAM: 3:05 PM. TECHNIQUE: Frontal, lateral, and swimmer's views of the thoracic spine were obtained. FINDINGS: The curvature and alignment are normal. The vertebral body heights are maintained. No fracture is seen. The pedicles and paraspinous line are intact. There is generalized thoracic spondylosis with variable disc space narrowing and marginal spurring. IMPRESSION: Thoracic spondylosis. No acute bony abnormality is detected. Dictated by: Dictated on workstation # [id number]
== END ==
LOC: RAD 14:54
PROVIDERS: ATTEND Internal Medicine
DX: M47.812 Spondylosis without myelopathy or radiculopathy, cervical region (principal); M47.814 Spondylosis without myelopathy or radiculopathy, thoracic region; R90.82 White matter disease, unspecified
CPT/HCPCS: 70450; 72072; 72125

== ENCOUNTER → 2021-12-01 | Outpatient (CLI) | payer MEDICARE, MEDICAID ==
[~2021-12-01] MED LIST changes: -CLIN150C18 PO; +CLIN150C20 PO
== END ==
LOC: LABNPT 06:48
PROVIDERS: ATTEND Internal Medicine
DX: R05.9 Cough, unspecified (principal); R51.9 Headache, unspecified; R09.89 Other specified symptoms and signs involving the circulatory and respiratory systems; R09.81 Nasal congestion; Z20.822 Contact with and (suspected) exposure to COVID-19
CPT/HCPCS: 87635

== ENCOUNTER → 2021-12-20 | Outpatient (CLI) | payer MEDICARE ==
[~2021-12-20] MED LIST changes: +CATHETER FLUSH 10 ML SYR IV PRN
[2021-12-20 13:11] VITALS: BP 140/86
--- NOTE | 2021-12-20 15:47 | Cardiology Stress Test Report ---
Stress Test Report Date of Procedure/Referring: Date of Procedure: Dec 20, 2021 Linsey Duong Admitting Physician Jian Arora MD Indications: HTN Baseline Heart Rate: 58 Baseline Blood Pressure: Blood Pressure Systolic: 140 Blood Pressure Diastolic: 86 Vital Signs Date Time Temp Pulse Resp B/P (MAP) Pulse Ox O2 Delivery O2 Flow Rate FiO2 12/20/21 13:11 58 16 140/86 (104) 98 Room Air Baseline Vital Signs Vital Signs Date Time Temp Pulse Resp B/P (MAP) Pulse Ox O2 Delivery O2 Flow Rate FiO2 12/20/21 13:11 58 16 140/86 (104) 98 Room Air Baseline EKG: Baseline EKG: NSR Summary: After explaining the procedure and details to the patient, he signed the consent and was brought to the stress nuclear laboratory. Patient exercised on standard Fan protocol, EKG, heart rate and blood pressure were monitored continuously, resting and stress doses of radio tracer were injected, imaging was acquired and reviewed in the short axis, horizontal long axis and vertical long axis views Patient was able to exercise for a total of 8 minutes on Fan protocol, METs 9.5 Maximum heart rate 137 Maximum blood pressure 197/93 Stress EKG, Minimal nondiagnostic changes Recovery EKG, Return to baseline TID: 1.06 SSS: 2 SDS: 0 EF: 55 Conclusion: 1. Good exercise tolerance for a total of 8 minutes on standard Fan protocol, 9.5 METS achieving 86% of maximal expected heart rate 2. Appropriate heart rate response to exercise with hypertensive response to exercise with peak blood pressure 197/93 return to baseline during recovery 3. Nondiagnostic EKG changes with exercise return to baseline during recovery 4. Normal left ventricular size with normal contractility, ejection fraction 55% 5. No significant ischemia or infarction on SPECT images SHANIKA HOLMAN MD Dec 20, 2021 15:47
== END ==
LOC: CARD 10:30
PROVIDERS: ATTEND Physician Assistant
DX: I35.1 Nonrheumatic aortic (valve) insufficiency (principal); I11.9 Hypertensive heart disease without heart failure
CPT/HCPCS: 78452; 93017; 93306; A9502

== ENCOUNTER 2021-12-27 05:29 | Outpatient (RCR) | payer MEDICARE ==
[~2021-12-27] VITALS: Ht 168 cm; Wt 90.9 kg
[~2021-12-27 05:29] MED LIST changes: -CATHETER FLUSH 10 ML SYR IV PRN; +GABA300C PO
== END 2021-12-27 10:00 | disposition home or self-care (01) ==
LOC: PREOP 05:29
PROVIDERS: ATTEND Internal Medicine
DX: Z01.812 Encounter for preprocedural laboratory examination (principal); Z12.11 Encounter for screening for malignant neoplasm of colon; R10.12 Left upper quadrant pain; Z20.822 Contact with and (suspected) exposure to COVID-19; Z86.010 Personal history of colon polyps
CPT/HCPCS: 87635

== ENCOUNTER → 2022-01-03 | Outpatient (CLI) | payer MEDICARE | LOC: LABNPT 05:58 | PROVIDERS: ATTEND Internal Medicine | DX: Z01.812 Encounter for preprocedural laboratory examination (principal); Z20.822 Contact with and (suspected) exposure to COVID-19 | CPT/HCPCS: 87635 ==

== ENCOUNTER 2022-01-05 08:41 | Day surgery (SDC) | payer MEDICARE ==
--- NOTE | 2021-12-26 16:17 | HISTORY AND PHYSICAL ---
DATE OF SERVICE: PANENDOSCOPY SUMMARY HISTORY: The patient is a 61-year-old white male referred by Dr. Arora for diagnostic panendoscopy. He has a past history of colon cancer. Last colonoscopy was performed by myself 4 years ago in 2018, at which time he had a tubular adenoma removed from the distal transverse colon. He also underwent EGD at that time and had a distal duodenal bulb ulceration. He was Helicobacter negative at that time. He continues to take aspirin for coronary artery disease and is also on 20 mg of omeprazole daily. For the past several months, he intermittently is noted, but feels like a mass in the left lower quadrant of the abdomen, but at times tender. He is unsure as to whether or not this dissipates after a bowel movement. He denies melena or bright red blood per rectum and reports he is not aware of any change in weight. He has also had right upper quadrant abdominal pain that is not associated with nausea. It is questionably aggravated after meals. It does not wake him up at night. He denies any associated chest pain. PAST MEDICAL HISTORY: Significant for coronary artery disease in addition to the above. His last coronary stent was placed in 2010. He has had no problems since that time. He has a history of hypertension and hyperlipidemia. He reports no surgery since I last saw him in 2018. FAMILY HISTORY: He has two cousins who have been diagnosed with colon cancer in their 60s. Father of glioblastoma at the age 72 and mother following suicide at the age of 41. He has one brother who was diagnosed with prostate cancer at the age of 60. SOCIAL HISTORY: He is retired. No significant alcohol intake. Distant past history of smoking, less than 56-owyk-oscp history. REVIEW OF SYSTEMS: CONSTITUTIONAL: Denies night sweats, chills, fever, change in weight. PULMONARY: Denies cough, wheezing, or shortness of breath. CARDIOVASCULAR: Denies orthopnea, PND, pedal edema, or chest discomfort, has had no syncope or presyncope. GASTROINTESTINAL: As noted in the HPI. PHYSICAL EXAMINATION: GENERAL: Reveals a pleasant white male, appears to be in no acute distress. VITAL SIGNS: Weight 201.8 pounds, which is down 5 pounds from his weight in 2018, blood pressure 142/86. HEENT: Unremarkable. Oral cavity clear. Mallampati III, oropharyngeal configuration. CHEST: Clear to auscultation. CARDIOVASCULAR: Reveals a regular rate and rhythm without murmur, S3 or S4. ABDOMEN: Soft, supple without mass, organomegaly or tenderness. In the standing position, I could not palpate any evidence for hernia in the relaxed or after Valsalva maneuver with no pain being reported. There was some mild right upper quadrant discomfort to palpation without rebound or guarding. Martinez sign negative. EXTREMITIES: Reveal no cyanosis, clubbing or edema. ASSESSMENT: The patient is being set up for diagnostic panendoscopy, past history of colon polyps, family history for colon cancer with left lower quadrant abdominal pain. He is undergoing EGD for right upper quadrant abdominal pain, past history of peptic ulcer disease. Prep instructions with Suprep kit were given and questions were answered. I thank you for the referral of this pleasant gentleman. Job ID: [id number] DocumentID: [id number] Dictated Date: 12/26/2021 15:58:09 Blender Date: 12/26/2021 16:16:56 Dictated By: CARIDAD HOLLIS MD
[~2022-01-05] VITALS: Ht 168 cm; Wt 90.9 kg
[2022-01-05] VITALS (7 sets, daily range): BP systolic 88–154; BP diastolic 51–95
[2022-01-05] MEDS ORDERED: LACTATED RINGERS 1,000 ML IV STA (08:43)
[2022-01-05] MEDS ORDERED: LIDOCAINE JELLY 2% 6 ML SYRINGE MM PRN (08:45)
[2022-01-05] MEDS ORDERED: HURRICAINE EXT TUBE (BENZOCAINE) XX PRN (08:45)
--- NOTE | 2022-01-05 09:04 | Pre-Op Note & Conscious Sedat ---
Pre-Operative Progress Note H&P Reviewed The H&P was reviewed, patient examined and no changes noted. Date H&P Reviewed: Jan 05, 2022 Time H&P Reviewed: 09:04 Conscious Sedation Pre-Proced ASA Score 2 For ASA 3 and 4: Consider anesthesia and medical clearance. Also, for patients with a history of failed moderate sedation consider anesthesia. Airway Lungs Heart ASA score ASA 1: a normal healthy patient ASA 2: a patient with a mild systemic disease (mid diabetes, controlled hypertension, obesity ASA 3: a patient with a severe systemic disease that limits activity (angina, COPD, prior Myocardial infarction) ASA 4: a patient with an incapacitating disease that is a constant threat to life (CHF, renal failure) ASA 5: a moribund patient not expected to survive 24 hrs. (ruptured aneurysm) ASA 6: a declared brain- patient whose organs are being harvested. For emergent operations, add the letter E after the classification Mallampati Classification Grade 2 Sedation Plan Analgesia, Amnesia, Plan communicated to team members, Discussed options with patient/fam, Discussed risks with patient/fam The patient is an appropriate candidate to undergo the planned procedure, sedation, and anesthesia. The patient immediately re-assessed prior to indication. CARIDAD HOLLIS MD Jan 05, 2022 09:04
[2022-01-05] MEDS ORDERED: PROPOFOL INJECTION 50 ML IV ONE ×3 (09:32→10:17)
--- NOTE | 2022-01-05 13:23 | Anesthesia-General Post-Op ---
MAC Patient Condition Mental Status/LOC: Same as Preop Cardiovascular: Satisfactory Nausea/Vomiting: Absent Respiratory: Satisfactory Pain: Controlled Complications: Absent Post Op Complications Complications None Follow Up Care/Instructions Patient Instructions None needed. Anesthesiology Discharge Order Discharge Order Patient is doing well, no complaints, stable vital signs, no apparent adverse anesthesia problems. No complications reported per nursing. INOCENTE JOHN CRNA Jan 05, 2022 13:23
--- NOTE | 2022-01-05 15:16 | OPERATIVE REPORT ---
DATE OF SERVICE: DIAGNOSTIC PANENDOSCOPY SUMMARY INDICATION FOR THE PROCEDURE: Right upper quadrant abdominal pain with a history of peptic ulcer disease and left lower quadrant abdominal pain with mass. DESCRIPTION OF PROCEDURE: The patient was placed in the left lateral decubitus position. The endoscope was inserted in the oral cavity and under direct visualization, esophagus was intubated. The endoscope was passed down the esophagus through the stomach, ultimately into the second portion of the duodenum. Careful inspection was made as the colonoscope was withdrawn. FINDINGS: Proximal, mid and distal esophagus were unremarkable. There was no evidence for erosive esophagitis. The patient does have a small 1 to 2 cm hiatal hernia present. No evidence for North's change from erosion or ulceration was noted. The cardia, fundus, antrum, pylorus, and pyloric channel were unremarkable. There was a benign-appearing stricture involving the posterior duodenal bulb without evidence for ulceration. It roughly measured a 5 x 8 mm in size and was fixed. The patient had retained food cut up, but with minimal evidence that the patient had chewed the food in rather perfect squares. I first had to basket the food to get an unobstructed view of the stricture, which I was able to. I placed the 18 mm balloon dilator across and dilated. Following this, I was able to easily get the scope into the second portion of the duodenum, which was unremarkable as was the third. ASSESSMENT: The patient had a benign-appearing stricture, likely a result of previous peptic ulcer disease involving the outlet of the duodenal bulb. This was dilated using the 18 mm balloon dilator to 6 atmospheres. The patient had small hiatal hernia without evidence for erosive esophagitis. We did discuss the importance of slowing his eating down with more careful attention to mastication. I expect over time, there will be narrowing again and the patient very well may need balloon dilatation, based on obstructive type symptoms. We then proceeded with colonoscopy. COLONOSCOPY NOTE DESCRIPTION OF PROCEDURE: The patient was placed in the left lateral decubitus position. Prior to undergoing colonoscopy, digital rectal evaluation was performed. Anal sphincter tone was normal and the perianal reflex was intact. Prostate was mild to moderately enlarged and anodular on digital inspection. No other abnormalities were noted on digital inspection of the anal canal or distal rectal vault. The colonoscope was then inserted into the rectum and under direct visualization advanced to the cecum. The cecum was identified by identification of the ileocecal valve and cecal strap as well as appendiceal orifice. Photographic documentation was obtained. Quality of the prep was good. FINDINGS: There were probably approximately 10 hyperplastic appearing polyps noted from the distal sigmoid colon to the distal rectum. Four of the larger ones were removed via hot forceps and submitted for histopathology with no blood loss. The sigmoid colon, descending colon, splenic flexure, transverse colon, hepatic flexure, ascending colon, and cecum were unremarkable with no other evidence for neoplasia. ASSESSMENT: Four hyperplastic appearing polyps were removed via hot forceps with no blood loss. This was an otherwise normal colonoscopy to the cecum. As long as there are no surprises on histopathology report, we would advocate consideration for a repeat screening colonoscopy in 10 years. Abdominal palpation revealed no evidence for abdominal mass post-colonoscopy. I thank you for the referral of this pleasant gentleman. Job ID: [id number] DocumentID: [id number] Dictated Date: 01/05/2022 10:45:58 Security Compliance Specialist Date: 01/05/2022 15:15:44 Dictated By: CARIDAD HOLLIS MD MTDD
== END 2022-01-05 11:30 | disposition home or self-care (01) ==
LOC: ENDO 08:41
PROVIDERS: ATTEND Internal Medicine
DX: K63.5 Polyp of colon (principal); K44.9 Diaphragmatic hernia without obstruction or gangrene; K31.5 Obstruction of duodenum; I25.10 Atherosclerotic heart disease of native coronary artery without angina pectoris; Z87.11 Personal history of peptic ulcer disease; Z79.82 Long term (current) use of aspirin; Z80.0 Family history of malignant neoplasm of digestive organs; Z79.899 Other long term (current) drug therapy; Z85.038 Personal history of other malignant neoplasm of large intestine
CPT/HCPCS: 88305

== ENCOUNTER → 2022-05-03 | Outpatient (CLI) | payer MEDICARE ==
[~2022-05-03] MED LIST changes: +BUPR-104 PO; -BUPR100T8 PO; -FENO134C PO; +FENO134C21 PO
--- NOTE | 2022-05-03 14:36 | Diagnostic Imaging Report ---
PROCEDURE: CT head without contrast. TECHNIQUE: Multiple contiguous axial images were obtained through the brain without the use of intravenous contrast. Auto Exposure Controls were utilized during the CT exam to meet ALARA standards for radiation dose reduction. INDICATION: Blurred vision for one month. Correlation is made with prior head CT from 02/21/2021. Ventricles and sulci are within normal limits. No sulcal effacement or midline shift is identified. No acute intra-axial or extra-axial hemorrhage is detected. Cisterns are patent. Visualized paranasal sinuses are clear. IMPRESSION: No acute intracranial process is detected. Dictated by: Dictated on workstation # [id number]
== END ==
LOC: RAD 14:30
PROVIDERS: ATTEND Nurse Practitioner Family
DX: H53.8 Other visual disturbances (principal); Z91.81 History of falling
CPT/HCPCS: 70450

== ENCOUNTER 2022-08-09 05:29 | Outpatient (CLI) | payer MEDICARE ==
[~2022-08-09] VITALS: Ht 167.4 cm; Wt 90.0 kg
[~2022-08-09 05:29] MED LIST changes: -OLME40TA12 PO; +OLME40TA70 PO
== END 2022-08-09 11:37 | disposition home or self-care (01) ==
LOC: PREOP 05:29
PROVIDERS: ATTEND Podiatrist Foot & Ankle Surgery
DX: Z01.818 Encounter for other preprocedural examination (principal)

== ENCOUNTER 2022-08-20 07:52 | Day surgery (SDC) | payer MEDICARE ==
[2022-08-20] VITALS (11 sets, daily range): BP systolic 111–152; BP diastolic 68–89
[~2022-08-20] VITALS: Ht 170.2 cm; Wt 90.0 kg
[2022-08-20] MEDS ORDERED: ceFAZolin INJECTION 1,000 MG VIAL IV ONE (08:00)
[2022-08-20] MEDS ORDERED: ceFAZolin 1 GM/NS 50 ML (SDC/OR ONLY) IV ONE ×2 (08:15)
[2022-08-20] MEDS: LACTATED RINGERS 1,000 ML IV PRN ×3 (09:02→10:45)
[2022-08-20] MEDS ORDERED: proPOfol 200 MG/20 ML (DIPRIVAN) VIAL IV ONE (09:16)
[2022-08-20] MEDS ORDERED: ONDANSETRON 4 MG/2 ML (SDV) Z0FRAN ONE (09:16)
[2022-08-20] MEDS ORDERED: MIDAZOLAM 2 MG/2 ML (VERSED) VIAL ONE (09:16)
[2022-08-20] MEDS ORDERED: fentaNYL INJ 100 MCG/2 ML AMP ONE (09:16)
[2022-08-20] MEDS ORDERED: LIDOCAINE PF 2% 5 ML (XYLOCAINE) VIAL ONE (09:16)
[2022-08-20] MEDS ORDERED: BUPIVACAINE 0.5% 30 ML (SENSORCAINE) VIAL ONE (09:17)
[2022-08-20] MEDS ORDERED: LIDOCAINE 1% INJ 10 ML VIAL ONE (09:17)
--- NOTE | 2022-08-20 09:24 | Progress Note-Pre Operative ---
Pre-Operative Progress Note Date of Available H&P: Aug 20, 2022 Date H&P Reviewed: Aug 20, 2022 Time H&P Reviewed: 09:24 Pre-Operative Diagnosis: Hallux Valgus, DJD, right foot RAUL HERNANDES DPM Aug 20, 2022 09:24
[2022-08-20] MEDS ORDERED: SEVOFLURANE (ULTANE) 15 ML INHAL SOLN ONE (11:00)
--- NOTE | 2022-08-20 11:10 | Progress Note-Post Operative ---
Post-Operative Progess Note Surgeon (s)/Type Disk Quality Control Supervisor (s) Surgeon RAUL HERNANDES DPM Type Disk Quality Control Supervisor: none Pre-Operative Diagnosis Hallux Valgus, DJD, right foot Post-Operative Diagnosis Same with hallux rigidus, right Procedure & Operative Findings Date of Procedure 08/20/22 Procedure Performed/Findings Arthrodesis of right 1st MTPJ Anesthesia Type General Estimated Blood Loss Estimated blood loss (mL): Minimal Specimens/Packing Specimens Removed None RAUL HERNANDES DPM Aug 20, 2022 11:10
[2022-08-20] MEDS ORDERED: CEPH500C PO (11:13)
[2022-08-20] MEDS ORDERED: ACHD5005 PO (11:13)
[2022-08-20] MEDS ORDERED: ONDANSETRON 4 MG/2 ML (SDV) Z0FRAN IVP PRN (11:15)
[2022-08-20] MEDS ORDERED: morphine INJ 10 MG/ML 1ML (SYR OR VIAL) IVP ONE (11:15)
[2022-08-20] MEDS ORDERED: LACTATED RINGERS 1,000 ML IV SCH (11:15)
[2022-08-20] MEDS ORDERED: HYDROcodone/APAP 5 MG/325 MG (LORTAB) TAB PO PRN (11:15)
[2022-08-20] MEDS ORDERED: morphine INJ 10 MG/ML 1ML (SYR OR VIAL) ONE (11:29)
[2022-08-20] MEDS ORDERED: diphenhydrAMINE 50 MG/ML INJ (BENADRYL) ONE (11:38)
[2022-08-20] MEDS ORDERED: diphenhydrAMINE 50 MG/ML INJ (BENADRYL) IM ONE (11:45)
--- NOTE | 2022-08-20 12:56 | Anesthesia-General Post-Op ---
General Patient Condition Mental Status/LOC: Same as Preop Cardiovascular: Satisfactory Nausea/Vomiting: Absent Respiratory: Satisfactory Pain: Controlled Complications: Absent Post Op Complications Complications None Follow Up Care/Instructions Patient Instructions None needed. Anesthesia/Patient Condition Patient Condition Patient is doing well, no complaints, stable vital signs, no apparent adverse anesthesia problems. No complications reported per nursing. ALEJO HANKS CRNA Aug 20, 2022 12:56
--- NOTE | 2022-08-20 15:40 | OPERATIVE REPORT ---
DATE OF SERVICE: 08/20/2022 SURGEON: Mariann Hernandes DPM. PREOPERATIVE DIAGNOSES: Hallux abductovalgus metatarsal primus varus, right with degenerative joint disease, right first metatarsophalangeal joint. POSTOPERATIVE DIAGNOSES: Hallux abductovalgus metatarsal primus varus, right with degenerative joint disease, right first metatarsophalangeal joint with the diagnosis of hallux limitus, right. PROCEDURE: Arthrodesis of the right first metatarsophalangeal joint. WOUND CLASS: Clean. ANESTHESIA: General. HEMOSTASIS: Pneumatic ankle tourniquet at 300 mmHg. INDICATIONS: This 62-year-old male presents complaining of a painful right great toe joint. There is pain with palpation as well as range of motion of the first metatarsophalangeal joint. Conservative therapy is met with unsatisfactory results and the patient is agreeable to surgical intervention after risks and complications were discussed at length. No guarantees were extended to the patient and he is willing to proceed. DESCRIPTION OF PROCEDURE: The patient was brought back to the operating table, placed in secure supine position. A general anesthetic was then induced. Appropriate timeout was performed. The right foot was then prepped and draped in normal sterile manner. The right foot was then elevated, allowed to exsanguinate after which the thigh tourniquet was inflated to 300 mmHg. Attention was then directed to the dorsal aspect of the right first metatarsophalangeal joint where a 6 cm longitudinal linear incision was created. The incision was deepened down to the capsular tissue with great care to avoid any major neurovascular structures. Only necessary blood vessels were cauterized as encountered. An incision was continued through the capsule where the longitudinal capsulotomy exposing multiple osteophytes to the dorsal aspect of the first metatarsal head and base of the proximal phalanx. These areas were cleared of osteophytes with a rongeur and power bur, a power sagittal saw. Next, inspection of the first metatarsal head had approximately 10% of the articular cartilage. The rest was devoid of any hyaline cartilage. Significant damage was also done to the articular cartilage of the base of the proximal phalanx. For this reason, we performed the arthrodesis procedure. First, curettage was performed to the articular cartilage to the head of the first metatarsal and base of the proximal phalanx. The area was further contoured and smoothed with a power bur, after which, fenestration was performed with a wire passing drill of 1.5 mm diameter to the metatarsal head and base of the proximal phalanx. Once this was performed, the joint was reapproximated in a rectus alignment with the proximal phalanx slightly dorsiflex as compared to what would be the weightbearing surface for the patient. Temporary K-wire fixation was performed. An intraoperative C-arm confirmed alignment. Next, a percutaneous incision was made to the plantar medial aspect of the proximal phalanx of the right hallux, after which a guidewire was driven from a distal medial to proximal lateral across the arthrodesis site after which a Picacho 28 4.0 short threaded cannulated screw of 38 mm of length was passed over. Excellent bony apposition and fixation was appreciated at this time. However, an 8 mm staple was also applied to the dorsal aspect of the arthrodesis site to reduce the chance of rotation and continue with fixation. This was all confirmed with intraoperative C-arm. The wound was flushed with copious amounts of normal saline throughout the procedure. Closure was then performed in layers. Deep closure was performed with 3-0 Vicryl, superficial performed with 4-0 Vicryl, skin closure with 4-0 Prolene in a horizontal mattress type stitch to the main incision, a simple interrupted stitch was also applied to the plantar medial aspect for the axillary incision. A postoperative injection consisted of 17 mL of 1:1 mixture of 1% Xylocaine, 0.5% Marcaine injected in a Joshi block. A postoperative dressing consisted of Betadine soaked Adaptic, sterile 4 x 4, sterile Kerlix all secured with Coban wrap. The patient tolerated the anesthesia and procedure well, was transported from the operating room to the recovery room with vital signs stable and vascular status intact to all digits of the right foot. He is to follow up in my office in 10 days' period of time or sooner if necessary. In the meantime, he is to no weightbearing to the right forefoot. Job ID: [id number] DocumentID: [id number] Dictated Date: 08/20/2022 11:22:01 Manager Semiconductor Date: 08/20/2022 15:39:58 Dictated By: MARIANN HERNANDES DPM
--- NOTE | 2022-08-20 19:27 | Diagnostic Imaging Report ---
INDICATION: Postop 1st MTP joint arthrodesis. AP and lateral views of the right foot are obtained. There is no prior study for comparison. A threaded screw as well as staple seen across the 1st MTP joint. Osteophyte formation of 1st MTP joint is noted. Remaining structures appear unremarkable. IMPRESSION: Postop changes status post arthrodesis of the 1st MTP joint. No acute appearing abnormality. Dictated by: Dictated on workstation # [id number]
== END 2022-08-20 13:18 | disposition home or self-care (01) ==
LOC: SDC 07:52
PROVIDERS: ATTEND Podiatrist Foot & Ankle Surgery
DX: M20.11 Hallux valgus (acquired), right foot (principal); M20.5X1 Other deformities of toe(s) (acquired), right foot; I25.10 Atherosclerotic heart disease of native coronary artery without angina pectoris; I10 Essential (primary) hypertension; G47.33 Obstructive sleep apnea (adult) (pediatric); Z79.899 Other long term (current) drug therapy
CPT/HCPCS: 28750; 73620; 87081; C1713 ×3

== ENCOUNTER → 2022-11-07 | Outpatient (CLI) | payer MEDICARE ==
[~2022-11-07] MED LIST changes: +CEPH500C PO; +VITA-212 PO; -VITA-272 PO
--- NOTE | 2022-11-07 11:27 | Diagnostic Imaging Report ---
PROCEDURE: CT head without contrast. TECHNIQUE: Multiple contiguous axial images were obtained through the brain without the use of intravenous contrast. Auto Exposure Controls were utilized during the CT exam to meet ALARA standards for radiation dose reduction. INDICATION: Follow-up subdural hematoma. COMPARISON: Correlation is made with head CT from 05/03/2022. FINDINGS: The ventricles and sulci are within normal limits. No sulcal effacement or midline shift is identified. No acute intra-axial or extra-axial hemorrhage is detected. The cisterns are patent. The visualized paranasal sinuses are clear. IMPRESSION: No acute intracranial process is detected. Dictated by: Dictated on workstation # [id number]
== END ==
LOC: RAD 11:15
PROVIDERS: ATTEND Internal Medicine
DX: S06.5XAA Traumatic subdural hemorrhage with loss of consciousness status unknown, initial encounter (principal); X58.XXXA Exposure to other specified factors, initial encounter
CPT/HCPCS: 70450

== ENCOUNTER 2022-11-09 07:24 | Outpatient (CLI) | payer MEDICARE ==
[~2022-11-09] VITALS: Ht 196 cm; Wt 91.0 kg
== END 2022-11-09 14:30 | disposition home or self-care (01) ==
LOC: PREOP 07:24
PROVIDERS: ATTEND Podiatrist Foot & Ankle Surgery
DX: Z01.818 Encounter for other preprocedural examination (principal)

== ENCOUNTER 2022-11-23 11:08 | Day surgery (SDC) | payer MEDICARE ==
[~2022-11-23] VITALS: Ht 172.7 cm; Wt 95.0 kg
[2022-11-23] VITALS (10 sets, daily range): BP systolic 98–145; BP diastolic 55–89
[2022-11-23] MEDS ORDERED: CLINDAMYCIN 600 MG/50 ML IVPB 50 ML IV ONE ×2 (11:59→12:00)
[2022-11-23] MEDS ORDERED: LACTATED RINGERS 1,000 ML IV PRN (12:00)
[2022-11-23] MEDS ORDERED: LIDOCAINE PF 2% 5 ML (XYLOCAINE) VIAL ONE (13:27)
[2022-11-23] MEDS ORDERED: ONDANSETRON 4 MG/2 ML (SDV) Z0FRAN ONE (13:27)
[2022-11-23] MEDS ORDERED: fentaNYL INJ 100 MCG/2 ML AMP ONE (13:27)
[2022-11-23] MEDS ORDERED: proPOfol 200 MG/20 ML (DIPRIVAN) VIAL IV ONE (13:27)
[2022-11-23] MEDS ORDERED: SEVOFLURANE (ULTANE) 15 ML INHAL SOLN ONE (13:27)
[2022-11-23] MEDS ORDERED: MIDAZOLAM 2 MG/2 ML (VERSED) VIAL ONE (13:28)
[2022-11-23] MEDS ORDERED: BUPIVACAINE 0.5% 30 ML (SENSORCAINE) VIAL ONE (13:33)
[2022-11-23] MEDS ORDERED: LIDOCAINE 1% INJ 20 ML VIAL ONE (13:33)
--- NOTE | 2022-11-23 13:40 | Progress Note-Pre Operative ---
Pre-Operative Progress Note Date of Available H&P: Nov 23, 2022 Date H&P Reviewed: Nov 23, 2022 Time H&P Reviewed: 13:40 Pre-Operative Diagnosis: Failed Arthrodesis of the right 1st MTPJ RAUL HERNANDES DPM Nov 23, 2022 13:40
[2022-11-23] MEDS ORDERED: HYDROmorphone 2 MG/ML VIAL (DILAUDID) IV ONE (15:30)
[2022-11-23] MEDS ORDERED: ONDANSETRON 4 MG/2 ML (SDV) Z0FRAN IVP PRN (15:30)
[2022-11-23] MEDS ORDERED: MEPERIDINE (DEMEROL) INJ 50 MG/ML IVP ONE (15:30)
[2022-11-23] MEDS ORDERED: morphine INJ 10 MG/ML 1ML (SYR OR VIAL) IVP ONE (15:30)
[2022-11-23] MEDS ORDERED: BUPIVACAINE 0.5% 30 ML (SENSORCAINE) VIAL INJ ONE (15:33)
--- NOTE | 2022-11-23 15:33 | Anesthesia-General Post-Op ---
General Patient Condition Mental Status/LOC: Same as Preop Cardiovascular: Satisfactory Nausea/Vomiting: Absent Respiratory: Satisfactory Pain: Controlled Complications: Absent Post Op Complications Complications None Follow Up Care/Instructions Patient Instructions None needed. Anesthesia/Patient Condition Patient Condition Patient is doing well, no complaints, stable vital signs, no apparent adverse anesthesia problems. No complications reported per nursing. INOCENTE JOHN CRNA Nov 23, 2022 15:33
--- NOTE | 2022-11-23 15:34 | Progress Note-Post Operative ---
Post-Operative Progess Note Surgeon (s)/Biomedical Specialist (s) Surgeon RAUL HERNANDES DPM Biomedical Specialist: none Pre-Operative Diagnosis Failed Arthrodesis of the right 1st MTPJ Post-Operative Diagnosis Same, fracture right 1st metatarsal head Procedure & Operative Findings Date of Procedure 11/23/22 Procedure Performed/Findings Revisional Arthrodesis right 1st metatarsophalangeal joint Anesthesia Type General Estimated Blood Loss Estimated blood loss (mL): minimal Specimens/Packing Specimens Removed none RAUL HERNANDES DPM Nov 23, 2022 15:34
[2022-11-23] MEDS ORDERED: LIDOCAINE 1% INJ 20 ML VIAL INJ ONE (15:35)
--- NOTE | 2022-11-23 15:36 | Physical Therapy Progress Note ---
Therapy Progress Note Patient in surgery upon PT arrival. Discussed plan of care with . She reports after the first foot surgery he had, she got him a knee scooter for mobility around the house. She reports he was standing and talking to her one day and lost his balance over the front of the handlebars, landing on his back and re-injuring the right foot. She reports at that time, Reuben was advised by Dr. Chance to move around only in the w/c. Patients reports they went to a friends house for Thanksgiving and there was a step down into a closed in [facility]. She is unsure what happened, but Reuben somehow rolled down the steps and fell out of the w/c, hitting his head and injuring his right foot again. The plan was for Dr. Chance to perform surgery again this date. The patients reports he is able to hop up the one step they have to get into the house with his FWW. Patients was advised to have a chair sitting on the porch so that once on the step the patient could sit in the chair, she could bring the w/c up the step, and then transfer Reuben back into the w/c where he can maneuver with decreased chance of falling. Patients reports they have a w/c, and a FWW at home. She had no further questions of this therapist at this time. JOE NAJERA PT Nov 23, 2022 15:36
[2022-11-23] MEDS ORDERED: CLIN150C2 PO (15:40)
[2022-11-23] MEDS ORDERED: CLIN150C20 PO (15:40)
[2022-11-23] MEDS ORDERED: HYDROcodone/APAP 5 MG/325 MG (LORTAB) TAB PO PRN (15:45)
[2022-11-23] MEDS ORDERED: LACTATED RINGERS 1,000 ML IV SCH (15:45)
[2022-11-23] MEDS ORDERED: KETOROLAC 30 MG/ML VIAL IVP ONE (15:45)
--- NOTE | 2022-11-23 17:27 | Diagnostic Imaging Report ---
Indication: Postop. Partially threaded and threaded screws as well as plates transfixing the 1st MTP with improved alignment and no adverse interval development. No suspicious retained opaque postoperative foreign body. Impression: Good appearance of the postop forefoot. Dictated on workstation # [id number]
--- NOTE | 2022-11-24 04:09 | OPERATIVE REPORT ---
DATE OF SERVICE: 11/23/2022 SURGEON: Mariann Hernandes DPM PREOPERATIVE DIAGNOSIS: Failed fusion of the right first metatarsophalangeal joint with fracture of the first metatarsal head and base of the proximal phalanx. POSTOPERATIVE DIAGNOSIS: Failed fusion of the right first metatarsophalangeal joint with fracture of the first metatarsal head and base of the proximal phalanx. PROCEDURE: Revisional arthrodesis to the right first metatarsophalangeal joint. WOUND CLASS: Clean. ANESTHESIA: General. HEMOSTASIS: Pneumatic thigh tourniquet at 300 mmHg. INDICATIONS: This is a 62-year-old male who presents for revisional arthrodesis to the right first metatarsophalangeal joint and unfortunately, the patient had several falls after the initial procedure and there remained some significant motion to the right first metatarsophalangeal joint with failed internal fixation. Postoperative x-rays indicated that there is some minor fracturing associated with the proximal medial base of the hallux as well as within the head of the first metatarsal. Because of these complications, the patient is agreeable to surgical intervention after risks and complications were discussed at length. No guarantees were extended to the patient and he is willing to proceed. DESCRIPTION OF PROCEDURE: The patient was brought back to the operating table and placed in a secure supine position. General anesthetic was then induced. Appropriate timeout was performed. Pneumatic thigh tourniquet was placed on the right lower extremity over several layers of padding. The right foot was anesthetized utilizing 10 mL of 1:1 mixture of 1% Xylocaine and 0.5% Marcaine injected in a Joshi block. The right foot was then prepped and draped in normal sterile manner. The right foot was then elevated and allowed to exsanguinate after which the tourniquet was inflated to 300 mmHg. Attention was then directed to the dorsal aspect of the right first metatarsophalangeal joint where a 6 cm longitudinal linear incision was created along the same path as the previous incision. The incision was deepened down with attempt to preserve any neurovascular structures; however, scar tissue made it difficult. Only necessary blood vessels were cauterized as they were encountered. The incision was deepened down to the capsule where a longitudinal capsulotomy was performed. The capsular tissue was reflected medial and laterally and this exposed the partially fractured dorsal aspect of the base of the proximal phalanx as well as the first metatarsal head. The compression screw was loose and was able to be withdrawn from the area without much difficulty. At the dorsal aspect of the first metatarsophalangeal joint, there was some partial fragments of bone and soft tissue to the dorsal head of the first metatarsal, which was cleaned with a rongeur and sharp dissection. Next, the 4.0 screw was applied from distal medial to proximal lateral, was withdrawn from the foot. It too had very little purchase and was spinning freely. There is also a significant motion appreciated even with the fixation, it was then noted to the first metatarsophalangeal joint area. Once the fixation was withdrawn from the foot, the first metatarsal head was inspected and found to have several deficits that were sharply debrided of any fibrotic tissue down to good clean bone. The same was performed to the base of the hallux. Next, the area was flushed with copious amounts of normal saline. A TenSIX 100% DBM composition putty by [employer] was introduced into the first metatarsophalangeal joint filling in any deficits. Next, utilizing the [place] 28 first metatarsophalangeal joint plate, a fixation process for the first metatarsophalangeal joint was performed. The plate was applied to the dorsal aspect of the arthrodesis site after which a 3.5 screw of 30 mm of length was applied from distal medial to proximal lateral across the arthrodesis site. Next, the distal 3 screws of the locking plate were 3.5 mm screws of 16, 16 and 14 mm of length. The proximal screws were 3.5 locking screws of 20, 18 and 14 mm of length. The nonlocking screw at the most proximal portion of the plate was a 14 mm 3.5 screw. Excellent bony apposition and fixation was appreciated. At this time, the fixation was verified with intraoperative C-arm. The wound was flushed with copious amounts of normal saline and closure was then performed in layers. Deep closure was performed with 3-0 Vicryl, superficial with 4-0 Vicryl, skin closed with 4-0 Prolene in a horizontal mattress type stitch. The patient had a postoperative injection consisting of 10 mL of 0.5% Marcaine injected in local infused to the surgical site. Sterile 4 x 4's, sterile Kerlix, and a Coban wrap was applied for postoperative dressing. The patient tolerated the anesthesia and procedure well and was transported from the operating room to the recovery room with vital signs stable and vascular status intact to all digits of the right foot. The patient already has analgesic medication at home. Prescription for clindamycin was sent with him. He is to follow up in my office in 10 days period time or sooner if necessary. He is to be nonweightbearing for the right forefoot. Job ID: [id number] DocumentID: [id number] Dictated Date: 11/23/2022 15:49:42 Bobbin Inspector Date: 11/24/2022 04:07:00 Dictated By: MARIANN HERNANDES DPM
== END 2022-11-23 17:10 | disposition home or self-care (01) ==
LOC: SDC 11:08
PROVIDERS: ATTEND Podiatrist Foot & Ankle Surgery
DX: S92.311A Displaced fracture of first metatarsal bone, right foot, initial encounter for closed fracture (principal); S92.411A Displaced fracture of proximal phalanx of right great toe, initial encounter for closed fracture; G47.33 Obstructive sleep apnea (adult) (pediatric); I25.10 Atherosclerotic heart disease of native coronary artery without angina pectoris; Z87.891 Personal history of nicotine dependence; W19.XXXA Unspecified fall, initial encounter
CPT/HCPCS: 73620; 87081